=== PATIENT | female | born 1940 | race Caucasian/White ===

== ENCOUNTER 2016-10-28 14:17 | Inpatient (IN) | payer OTHER, BC ==
--- NOTE | 2016-10-28 16:02 | PDOC ---
History of Present Illness - General Chief Complaint: Rectal Bleed Stated Complaint: NAUSEA, CHILLS Time Seen by Provider: 10/28/16 15:52 - History of Present Illness Initial Comments: 76 year old female with PMH of diverticulitis presenting with left lower quadrant pain and bloody bowel movements since this morning. She states that this pain is reminiscent of her episode of diverticulitis that she had in 2016 although she had no bloody bowel movements then. She was constipated the night before presentation for which she took a laxative which helped her move her bowels but then became bloodier. She also admits to some chills and nausea. Denies chest pain, palpitations, cough, or other sick symptoms. 10/28/16 17:22 10/28/16 21:04 Past History - Past Medical History Allergies/Adverse Reactions: Allergies Allergy/AdvReac Type Severity Reaction Status Date / Time No Known Allergies Allergy Verified 10/28/16 14:29 Psychiatric Problems: Yes (DEPRESSION) - Psycho/Social/Smoking Cessation Hx Suicidal Ideation: No Smoking History: Never smoked Information on smoking cessation initiated: No Review of Systems - Review of Systems Constitutional: Yes: Chills, Fever HEENTM: No: Blurred Vision, Recent change in vision Respiratory: No: Cough, Orthopnea, Wheezing Cardiac (ROS): No: Chest Pain, Edema *Physical Exam - Vital Signs Last Vital Signs Temp Pulse Resp BP Pulse Ox 98.1 F 91 H 18 143/73 98 10/28/16 14:25 10/28/16 14:25 10/28/16 14:25 10/28/16 14:25 10/28/16 14:25 - Physical Exam General Appearance: Yes: Nourished, Appropriately Dressed. No: Apparent Distress HEENT: positive: EOMI, CLAUDIA, Normal ENT Inspection Neck: negative: Tender Respiratory/Chest: positive: Lungs Clear, Normal Breath Sounds. negative: Chest Tender, Respiratory Distress Cardiovascular: positive: Regular Rhythm, Regular Rate, S1, S2. negative: Edema , JVD, Murmur Gastrointestinal/Abdominal: positive: Normal Bowel Sounds, Tender (LLQ tenderness to deep palpation), Flat, Soft Rectal Exam: positive: other (external hemorrhoids at 6 oclock position of anus. Erythematous fissure on 12 oclock position of anus. No blood in rectal vault.) Extremity: positive: Normal Capillary Refill, Normal Inspection Integumentary: positive: Normal Color, Dry, Warm Neurologic: positive: Fully Oriented, Alert, Normal Mood/Affect ED Treatment Course - LABORATORY CBC & Chemistry Diagram: 10/28/16 16:20 10/28/16 16:20 Medical Decision Making - Medical Decision Making 76 year old with diarrhea, bloody stools, and LLQ pain concerning for diverticulitis. CBC significant for 14 WBC but HgB WNL. CMP WNL, UA normal, will get CT abdomen/ pelvis with IV and oral con for diverticulitis. Signed out to Dr. Villatoro and Dr. Munoz at 19:00. 10/28/16 21:06 10/28/16 21:08 *DC/Admit/Observation/Transfer Diagnosis at time of Disposition: Diverticulitis of intestine
[2016-10-28 16:57] LABS: BASOPHIL 1.1 % (0-2.0); MCH 31.6 pg (25.7-33.7); MCHC 33.6 g/dl (32.0-36.0); MEAN CELL VOLUME 94.1 fl (80-96); MEAN PLT VOLUME 7.5 fl (7.5-11.1); NEUTROPHILS 84.5 % (42.8-82.8); PLATELET COUNT 550 K/MM3 (134-434); RDW 13.3 % (11.6-15.6); WHITE BLOOD COUNT 14.7 K/mm3 (4.0-10.0)
[2016-10-28] MEDS ORDERED: SODIUM CHLORIDE 0.9% 1000 ML INFUS.BAG IV ONE (17:44)
[2016-10-28] MEDS ORDERED: ONDANSETRON 4 MG TABLET PO ONE (17:44)
--- NOTE | 2016-10-28 17:46 | PDOC ---
Attending Attestation - Physicial Exam PE: 10/28/16 17:46 GENERAL: Awake, alert, and fully oriented, in no acute distress HEAD: No signs of trauma EYES: PERRLA, EOMI, sclera anicteric, conjunctiva clear ENT: Auricles normal inspection, hearing grossly normal, nares patent, oropharynx clear without exudates. Moist mucosa NECK: Normal ROM, supple, no lymphadenopathy, JVD, or masses LUNGS: Breath sounds equal, clear to auscultation bilaterally. No wheezes, and no crackles HEART: Regular rate and rhythm, normal S1 and S2, no murmurs, rubs or gallops ABDOMEN: LLQ tenderness to palpation. Soft, normoactive bowel sounds. No guarding, no rebound. No masses RECTAL: Fissure at 12 oclock. External hemorrhoid. EXTREMITIES: Normal range of motion, no edema. No clubbing or cyanosis. No cords, erythema, or tenderness NEUROLOGICAL: Cranial nerves II through XII grossly intact. Normal speech, normal gait SKIN: Warm, Dry, normal turgor, no rashes or lesions noted. - Medical Decision Making 10/28/16 17:46 Documentation prepared by Leisa Alaniz, acting as medical information specialist for Erica Pulido DO. <Leisa Alaniz - Last Filed: 10/28/16 17:46> - Resident Resident Name: NnamdiLissett - ED Attending Attestation I have performed the following: I have examined & evaluated the patient, The case was reviewed & discussed with the resident, I agree w/resident's findings & plan, Exceptions are as noted - HPI HPI: 10/28/16 17:43 76yo female with LLQ pain, constipation, and rectal bleeding. States hx of diverticulitis. States constipation yesterday and she took laxatives. Today with rectal bleeding. Denies cp/sob. No f/c. No urinary complaints. States pain similar to diverticulitis. Denies all other complaints. C/o nausea. No vomiting. 10/28/16 20:25 - Medical Decision Making 10/28/16 17:43 I, Dr. Erica Pulido DO, attest that this document has been prepared under my direction and personally reviewed by me in its entirety. I further attest, that it accurately reflects all work, treatment, procedures and medical decision -making performed by me. 10/28/16 17:44 a/p: 76yo female with LLQ pain, diarrhea, rectal bleeding -fissure on rectal exam and small external hemorrhoid. -labs -ct abd/pelvis to re-eval LLQ pain and poss diverticulitis -nausea control 10/28/16 20:26 pt with elevated wbc, pending ct scan 10/28/16 20:26 pt with LLQ pain, constipation and rectal bleeding. pt signed out to the on coming ED physician pending CT imaging for poss diverticulitis. <Erica Pulido - Last Filed: 10/28/16 20:28>
[2016-10-28 18:20] LABS: ALBUMIN 3.5 g/dl (3.4-5.0); ALK PHOS 95 U/L (45-117); BILIRUBIN,TOTAL 0.5 mg/dL (0.2-1.0); CALCIUM 9.8 mg/dL (8.5-10.1); CREATININE 0.8 mg/dL (0.55-1.02); GLUCOSE,RANDOM 120 mg/dL (74-106); MAGNESIUM 2.4 mg/dL (1.8-2.4); SGOT/AST 14 U/L (15-37); SGPT/ALT 14 U/L (12-78); TOT PROT 8.1 g/dl (6.4-8.2)
[2016-10-28 18:56] LABS: PH,URINE 5.5 (5.0-8.0); URINE APPEARANCE CLEAR; URINE BILIRUBIN 1+ (NEGATIVE); URINE BLOOD 2+ (NEGATIVE); URINE COLOR LT. YELLOW; URINE GLUCOSE (UA) NEGATIVE (NEGATIVE); URINE KETONE TRACE (NEGATIVE); URINE NITRITE NEGATIVE (NEGATIVE); URINE PROTEIN TRACE (NEGATIVE); URINE UROBILINOGEN 0.2 mg/dL (0.2-1.0)
[2016-10-28] MEDS ORDERED: ONDANSETRON *ODT* 4 MG TABLET ONE (18:56)
[2016-10-28 19:12] LABS: GRANULAR CASTS 1 /lpf; URINE HYALINE CAST 1 /lpf; URINE MUCUS MODERATE; URINE RBC 7 /hpf (0-3); URINE WBC 2 /hpf (3-5)
--- NOTE | 2016-10-28 19:58 | PDOC ---
*Physical Exam - Vital Signs Last Vital Signs Temp Pulse Resp BP Pulse Ox 98.1 F 91 H 18 143/73 98 10/28/16 14:25 10/28/16 14:25 10/28/16 14:25 10/28/16 14:25 10/28/16 14:25 ED Treatment Course - LABORATORY CBC & Chemistry Diagram: 10/28/16 16:20 10/28/16 16:20 - ADDITIONAL ORDERS Additional order review: Laboratory Results 10/28/16 10/28/16 17:40 16:20 Sodium 136 Potassium 4.9 Chloride 100 BUN 18 Creatinine 0.8 Creat Clearance w eGFR > 60 Random Glucose 120 H Calcium 9.8 Magnesium 2.4 Total Bilirubin 0.5 AST 14 L ALT 14 Alkaline Phosphatase 95 Total Protein 8.1 Albumin 3.5 Urine Color Lt. yellow Urine Appearance Clear Urine pH 5.5 Urine Protein Trace H Urine Glucose (UA) Negative Urine Ketones Trace H Urine Blood 2+ H Urine Nitrite Negative Urine Bilirubin 1+ H Urine Urobilinogen 0.2 Urine RBC 7 Urine WBC 2 Ur Epithelial Cells Rare Hyaline Casts 1 Granular Casts 1 Urine Mucus Moderate 10/28/16 16:20 RBC 4.23 MCV 94.1 MCHC 33.6 RDW 13.3 MPV 7.5 Neutrophils % 84.5 H Lymphocytes % 9.9 Monocytes % 4.5 Eosinophils % 0.0 Basophils % 1.1 - Medications Given in the ED: ED Medications Discontinued Medications Generic Name Dose Route Start Last Admin Trade Name Freq PRN Reason Stop Dose Admin Ondansetron HCl 4 mg 10/28/16 17:44 10/28/16 18:51 Zofran - PO 10/28/16 17:45 4 mg ONCE ONE Administration Sodium Chloride 1,000 ml 10/28/16 17:44 10/28/16 18:51 Normal Saline - IV 10/28/16 17:45 1,000 ml ONCE ONE Administration Medical Decision Making - Medical Decision Making 10/28/16 19:57 Patient signed out to me by day team, Dr. Coto. Pending CT and reassess. 10/28/16 19:58 WBC count 14.7. UA negative. 10/29/16 00:17 CT is abnormal. I have spoken with Dr. Zuniga, surgeon contract assistant, who has discussed the patient's CT results with me and the severity of her disease. He wants an ICU bed, harmon catheter, hydration, and zosyn 3.375 q6. I have spoken to the hospitalists who accept admission. [facility] accepts ICU admission. *DC/Admit/Observation/Transfer Diagnosis at time of Disposition: Diverticulitis - Discharge Dispostion Condition at time of disposition: Guarded Admit: Yes - Referrals Referrals: Adelaide Barber [Primary Care Provider] -
[2016-10-28 21:05] LABS: INR 1.26 (0.82-1.09); PROTHROMBIN TIME (PATIENT) 13.9 SEC (9.98-11.88)
[2016-10-28] MEDS ORDERED: METRONIDAZOLE 500 MG PREMIXED 100 ML IVPB ONE ×2 (22:53→23:01)
[2016-10-28] MEDS ORDERED: LEVOFLOXACIN 750 MG IVPB 150 ML IVPB ONE ×2 (22:53→23:53)
[2016-10-28 23:23] LABS: ANION GAP 10 (8-16); CO2 26 mmol/L (21-32)
--- NOTE | 2016-10-29 00:03 | PN ---
Progress Note (short form) - Note Progress Note: surgery Case reviewed with ED physician. full evaluation to follow. 76f with history of diverticulitis in August presents with 1 day of constipation followed by a bloody bm after taking laxatives. Ct shows thickening of entire left colon, sigmoid, and rectum with enhancing collection posterior to the rectum and pneumatosis of upper decending colon with air in the retroperitoneum near the pneumatosis. No fever with unremarkable vitals and wbc 14. Plan- npo, zosyn, icu. IR eval for drainage of collection if remains stable overnight. Laparotomy with colostomy/colectomy if deteriorates. Ct findings most consistent with colitis with perforation. enhancing collection suggest this process has been going on much more than 1 day.
[2016-10-29] MEDS ORDERED: SODIUM CHLORIDE 0.9% 1000 ML INFUS.BAG IV ONE (00:07)
[2016-10-29] MEDS ORDERED: PIPERACILLIN/TAZOB 3.375 GM/50 ML PRE-DOCKED IV ONE (00:08)
[2016-10-29] MEDS ORDERED: PIPERACILLIN/TAZOB 3.375 GM 50 ML IVPB ONE (00:18)
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
[2016-10-29] MEDS ORDERED: PIPERACILLIN/TAZOB 3.375 GM 3.375 GM in DEXTROSE 5%-WATER - 50 ML IVPB SCH (02:00)
--- NOTE | 2016-10-29 02:42 | HP ---
CHIEF COMPLAINT: LLQ abdominal pain and bloody diarrhea PCP: Dr. Barber HISTORY OF PRESENT ILLNESS: 76 y.o. F with pmh of diverticulitis, nephrolithiasis, and depression presenting with LLQ abdominal pain and bloody diarrhea. Patient states she had been having constipation x 2 weeks. She took 3 laxatives prior to sleeping. In the middle of the night, patient woke up with sharp, cramping, 5-8/10, non radiating LLQ pain. Patient states she began having bloody diarrhea, which helped to relieve the pain. She had >15 episodes of bloody diarrhea. Patient endorses fever, chills, night sweats, and band like lower back pain. Patient denies any chest pain, SOB, urinary symptoms. ER course was notable for: (1) VS- HR-91, WBC- 14.7, Lactic acid- pending (2) UA- 2+ blood, (3) Ct shows thickening of entire left colon, sigmoid, and rectum with enhancing collection posterior to the rectum and pneumatosis of upper decending colon with air in the retroperitoneum near the pneumatosis. Recent Travel: denies PAST MEDICAL HISTORY: diverticulitis, nephrolithiasis, and depression PAST SURGICAL HISTORY: Splenic removal s/p splenic rupture Social History: Smoking: denies Alcohol: 1 beer/night Drugs: denies Family History: Father- diverticulitis Allergies No Known Allergies Allergy (Verified 10/28/16 14:29) HOME MEDICATIONS: Home Medications Medication Instructions Recorded Citalopram Hydrobromide [Celexa -] 20 mg PO DAILY 10/28/16 REVIEW OF SYSTEMS CONSTITUTIONAL: Absent: fever, chills, diaphoresis, generalized weakness, malaise, loss of appetite, weight change (jan 26- over last 2 months) HEENT: Absent: rhinorrhea, nasal congestion, throat pain, throat swelling, difficulty swallowing, mouth swelling, ear pain, eye pain, visual changes CARDIOVASCULAR: Absent: chest pain, syncope, palpitations, irregular heart rate, lightheadedness , peripheral edema RESPIRATORY: Absent: cough, shortness of breath, dyspnea with exertion, orthopnea, wheezing, stridor, hemoptysis GASTROINTESTINAL: Absent: abdominal pain, abdominal distension, nausea, vomiting, diarrhea, constipation, melena, hematochezia GENITOURINARY: Absent: dysuria, frequency, urgency, hesitancy, hematuria, flank pain, genital pain MUSCULOSKELETAL: Absent: myalgia (band like lower back pain), arthralgia, joint swelling, back pain, neck pain SKIN: Absent: rash, itching, pallor HEMATOLOGIC/IMMUNOLOGIC: Absent: easy bleeding, easy bruising, lymphadenopathy, frequent infections ENDOCRINE: Absent: unexplained weight gain, unexplained weight loss, heat intolerance, cold intolerance NEUROLOGIC: Absent: headache, focal weakness or paresthesias, dizziness, unsteady gait, seizure, mental status changes, bladder or bowel incontinence PSYCHIATRIC: Absent: anxiety, depression, suicidal or homicidal ideation, hallucinations. PHYSICAL EXAMINATION GENERAL: Awake, alert, and fully oriented, in no acute distress. HEAD: Normal with no signs of trauma. EYES: Extraocular movements intact, sclera anicteric, conjunctiva clear. No lid lag. EARS, NOSE, THROAT: Oropharynx clear without exudates. Dry mucous membranes. NECK: Normal range of motion, supple without lymphadenopathy, JVD, or masses. LUNGS: Breath sounds equal, clear to auscultation bilaterally. No wheezes, and no crackles. No accessory muscle use. HEART: Regular rate and rhythm, normal S1 and S2 without murmur, rub or gallop. ABDOMEN: Soft, nontender, not distended, + bowel sounds, no guarding, no rebound , no masses. No hepatomegaly or splenomegaly. MUSCULOSKELETAL: Normal range of motion at all joints. No bony deformities or tenderness. UPPER EXTREMITIES: 2+ pulses, warm, well-perfused. No cyanosis. No clubbing. No peripheral edema. LOWER EXTREMITIES: 2+ pulses, warm, well-perfused. No calf tenderness. No peripheral edema. NEUROLOGICAL: Cranial nerves II-XII intact. Normal speech. Normal gait. PSYCHIATRIC: Cooperative. Good eye contact. Appropriate mood and affect. SKIN: Warm, dry, normal turgor, no rashes or lesions noted, normal capillary refill. ASSESSMENT/PLAN: 76 y.o. F with pmh of diverticulitis presenting with LLQ abdominal pain and bloody diarrhea admitted for colitis with bowel abscess and perforation #Bowel abscess with perforation and colitis -Keep patient NPO -Zosyn 3.375 g q6h -PT/INR -Type and Screen -IV protonix 40 mg IV daily -IVF NS @ 100 cc/hr -F/U lactic acid, BCX, UCX -Monitor abdominal exam, if patient worsens, pt may need to go for urgent surgery -Id consulted, Dr. Dent -Surgery Consulted, Dr. Zuniga -IR consulted, Dr. Felix-- Possible IR guided abscess drainage -ICU consulted #Bright red blood diarrhea -H/H wnl -Continue to monitor H/H -Will get morning CBC #Depression -Hold celexa 20 mg po daily as pt is NPO #FEN/GI -IVF NS @ 100 cc/hr -WNL -NPO #PPx -DVT- SCDs -GI- Protonix 40 mg IV daily #Dispo -Admit to ICU -Monitor abdominal exam, if patient worsens, pt may need to go for urgent surgery -IR consulted for possible IR guided abscess drainage Visit type - Emergency Visit Emergency Visit: Yes ED Registration Date: 10/29/16 Care time: The patient presented to the Emergency Department on the above date and was hospitalized for further evaluation of their emergent condition. - New Patient This patient is new to me today: Yes Date on this admission: 10/29/16 - Critical Care Critical Care patient: No
--- NOTE | 2016-10-29 03:13 | MSN ---
Admitting History and Physical - Admission Chief Complaint: LLQ pain with bloody diarrhea History of Present Illness: Patient is a 76 year old female with significant past medical history of diverticulitis (most recent flare up in 08/2016), nephrolithiasis who presented to the ED with LLQ pain and bloody diarrhea. Patient stated that she took 3 OTC laxitive pills last night to relieve constipation of 2 weeks duration. Patient woke up during the middle of the night with non-bloody, nonbillious vomiting, sharp, crampy, continuous 5-8/10 LLQ pain and copious bloody diarrhea. Patient also stated that she has been experiencing dull, band-like lower back pressure for the past few weeks. Patient has had at least 15 episodes of bloody diarrhea today, which has decreased the pain. She has been experiencing chills, night sweats, weight loss of about 10-12 lbs in 2 months (after diet change), and feeling feverish. Denies headache, lightheadedness, dizziness, chest pain, shortness of breath, and urinary symptoms. History Source: Patient Limitations to Obtaining History: No Limitations - Past Medical History Gastrointestinal: Yes: Diverticulitis (flare up in August 2016) Renal/: Yes: Other (nephrolithiasis (15 years ago)) Psych: Yes: Depression - Past Surgical History Past Surgical History: Yes: Joint Replacement (right hip replacement 2008), Splenectomy (1961) - Smoking History Smoking history: Never smoked - Alcohol/Substance Use Hx Alcohol Use: Yes Number of Drinks Daily: 1 (drinks one beer a night) History of Substance Use: reports: None Home Medications - Allergies Allergies/Adverse Reactions: Allergies Allergy/AdvReac Type Severity Reaction Status Date / Time No Known Allergies Allergy Verified 10/28/16 14:29 - Home Medications Home Medications: Ambulatory Orders Citalopram Hydrobromide [Celexa -] 20 mg PO DAILY 10/28/16 Family Disease History - Family Disease History Family Disease History: Diabetes: Father (diverticulitis), Other: Father Review of Systems - Review of Systems Constitutional: reports: Chills, Night Sweats HENT: reports: Other (dry mouth) Cardiovascular: reports: No Symptoms Respiratory: reports: No Symptoms Gastrointestinal: reports: Abdominal Pain, Diarrhea, Vomiting Genitourinary: reports: No Symptoms Musculoskeletal: reports: Back Pain (pressure in the lower back in a band-like fashion) Physical Examination Vital Signs: Vital Signs Temperature 98.4 F 10/28/16 23:20 Pulse Rate 71 10/28/16 23:20 Respiratory Rate 18 10/28/16 23:20 Blood Pressure 132/68 10/28/16 23:20 O2 Sat by Pulse Oximetry (%) 97 10/28/16 23:20 Constitutional: Yes: Well Nourished, No Distress, Calm HENT: Yes: Other (dry mucous membranes) Cardiovascular: Yes: WNL, Regular Rate and Rhythm, S1, S2 Respiratory: Yes: WNL, Regular, CTA Bilaterally Gastrointestinal: Yes: Soft, Hypoactive Bowel Sounds Edema: No Peripheral Pulses WNL: Yes Neurological: Yes: WNL, Alert, Oriented Imaging - Results Cat Scan: Report Reviewed (thickening of the left colon, sigmoid and rectum with enhancing collection posterior to the rectum and pneumatosis of upper decending colon, with air in the retroperitoneum. 6x4x2 cm abscess) Assessment/Plan Patient is a 76 year old female with past medical history of diverticultis ( last flare up 08/2016), depression and nephrolithiasis who presented to the ED with LLQ pain and bloody diarrhea. #Abscess with bowel perforation -CT abdomen showed 6x4x2 cm abscess, air in retroperitoneum and thickening left colon, sigmoid and rectum -NPO -IVF NS at 100cc/hr -zosyn 3.375g Q8H -ID consulted (Dr. Dent) -surgery consulted (Dr. Zuniga) -IR consulted to have abscess drained -f/u blood cultures, urine cultures -f/u lactic acid -protonix given (40mg IV daily) for GI prophylaxis -continue to check abdominal exam for sudden changes #GI bleeding -less amount of blood each time she goes to the bathroom -H and H WNL -continue to monitor H and H -blood type and screen -coagulation studies (PT/INR) #Depression -continue celexa #FEN -fluids: 100cc/hr NS -electrolytes: WNL -nutrition: NPO #Prophylaxis -DVT: SCDs -GI: protonix given (40mg IV daily) -deconditioning: patient able to walk on her own #Dispo -admit to ICU
--- NOTE | 2016-10-29 03:45 | CONSULT ---
Consult - History of Present Illness History of Present Illness: 76 year old female with PMHx of diverticulitis (most recent flare up in 08/2016) , nephrolithiasis who presented to the ED with fevr chills, LLQ pain and bloody diarrhea. CT A/P s/f colitis and a retroperitoneal abscess. Transferred to ICU for monitoring pending IR drainage of abscess. Briefly as per previous notes patient stated that she took 3 OTC laxitive pills last night to relieve constipation of 2 weeks duration. She had non-bloody, nonbillious vomiting, sharp, crampy, continuous 5-8/10 LLQ pain and copious bloody diarrhea. Patient also c/o dull, band-like lower back pressure for the past few weeks as well as chills, night sweats, weight loss of about 10-12 lbs in 2 months after loss of appetite and diet change. Denies headache, lightheadedness, dizziness, chest pain, shortness of breath, and urinary symptoms. In Ed VS 132/68, HR 71, O2sat 97% on RA, afebrile. Labs notable for WBC 14.1., lactate 0.8. CT scan s/f colitis intramural air possible bowel perforation and 6x4x2 cm fluid/abscess collection. Surgery and IR consulted for possible abscess drainage in am. In ICUpt rec'd A+O x3 in NAD VSS. No c/o abd pain. Abd soft and non-tender. Walked from stretcher to bed. Last colonosocpy ~5yrs ago with 1 polyp and hemorrhoids. Scheduled for repeat in november. - Past Medical History Gastrointestinal: Yes: Diverticulitis (flare up in August 2016) Renal/: Yes: Other (nephrolithiasis (15 years ago)) Psych: Yes: Depression - Past Surgical History Past Surgical History: Yes: Joint Replacement (right hip replacement 2008), Splenectomy (1961) - Alcohol/Substance Use Hx Alcohol Use: Yes Number of Drinks Daily: 1 (drinks one beer a night) History of Substance Use: reports: None - Smoking History Smoking history: Never smoked Home Medications - Allergies Allergies/Adverse Reactions: Allergies Allergy/AdvReac Type Severity Reaction Status Date / Time No Known Allergies Allergy Verified 10/28/16 14:29 - Home Medications Home Medications: Ambulatory Orders Citalopram Hydrobromide [Celexa -] 20 mg PO DAILY 10/28/16 Family Disease History - Family Disease History Family Disease History: Diabetes: Father (diverticulitis), Other: Father Review of Systems - Review of Systems Constitutional: reports: Fever, Night Sweats Eyes: reports: No Symptoms Physical Exam Vital Signs: Vital Signs Temperature 98.4 F 10/28/16 23:20 Pulse Rate 83 10/29/16 03:19 Respiratory Rate 20 10/29/16 03:19 Blood Pressure 139/71 10/29/16 03:19 O2 Sat by Pulse Oximetry (%) 98 10/29/16 03:19 Constitutional: Yes: Well Nourished, No Distress, Calm Eyes: Yes: Conjunctiva Clear, PERRL HENT: Yes: Normocephalic Neck: Yes: Supple, Trachea Midline Cardiovascular: Yes: Regular Rate and Rhythm, S1, S2 Respiratory: Yes: CTA Bilaterally Gastrointestinal: Yes: Soft, Other (+BS; soft, NT, ND, no rebound tenderness) Renal/: Yes: WNL Musculoskeletal: Yes: WNL Extremities: Yes: WNL Edema: No Peripheral Pulses WNL: Yes Integumentary: Yes: WNL Neurological: Yes: Alert, Oriented ...Motor Strength: WNL Psychiatric: Yes: Alert, Oriented Labs: CBC,CMP WBC 14.7 K/mm3 (4.0-10.0) H 10/28/16 16:20 RBC 4.23 M/mm3 (3.60-5.2) 10/28/16 16:20 Hgb 13.4 GM/dL (10.7-15.3) 10/28/16 16:20 Hct 39.8 % (32.4-45.2) 10/28/16 16:20 MCV 94.1 fl (80-96) 10/28/16 16:20 MCH 31.6 pg (25.7-33.7) 10/28/16 16:20 MCHC 33.6 g/dl (32.0-36.0) 10/28/16 16:20 RDW 13.3 % (11.6-15.6) 10/28/16 16:20 Plt Count 550 K/MM3 (134-434) H 10/28/16 16:20 MPV 7.5 fl (7.5-11.1) 10/28/16 16:20 Neutrophils % 84.5 % (42.8-82.8) H 10/28/16 16:20 Lymphocytes % 9.9 % (8-40) 10/28/16 16:20 Monocytes % 4.5 % (3.8-10.2) 10/28/16 16:20 Eosinophils % 0.0 % (0-4.5) 10/28/16 16:20 Basophils % 1.1 % (0-2.0) 10/28/16 16:20 Sodium 136 mmol/L (136-145) 10/28/16 16:20 Potassium 4.9 mmol/L (3.5-5.1) 10/28/16 16:20 Chloride 100 mmol/L (98-107) 10/28/16 16:20 Carbon Dioxide 26 mmol/L (21-32) 10/28/16 16:20 Anion Gap 10 (8-16) 10/28/16 16:20 BUN 18 mg/dL (7-18) 10/28/16 16:20 Creatinine 0.8 mg/dL (0.55-1.02) 10/28/16 16:20 Creat Clearance w eGFR > 60 (>60) 10/28/16 16:20 Random Glucose 120 mg/dL (74-106) H 10/28/16 16:20 Lactic Acid 0.8 mmol/L (0.4-2.0) 10/29/16 01:50 Calcium 9.8 mg/dL (8.5-10.1) 10/28/16 16:20 Magnesium 2.4 mg/dL (1.8-2.4) 10/28/16 16:20 Total Bilirubin 0.5 mg/dL (0.2-1.0) 10/28/16 16:20 AST 14 U/L (15-37) L 10/28/16 16:20 ALT 14 U/L (12-78) 10/28/16 16:20 Alkaline Phosphatase 95 U/L (45-117) 10/28/16 16:20 Total Protein 8.1 g/dl (6.4-8.2) 10/28/16 16:20 Albumin 3.5 g/dl (3.4-5.0) 10/28/16 16:20 Current Medications Chlorhexidine Gluconate (Hibiclens For Decolonization -) 1 applic TP HS SOM Citalopram Hydrobromide (Celexa -) 20 mg PO DAILY SOM Sodium Chloride (Normal Saline -) 1,000 mls @ 100 mls/hr IV ASDIR SOM Piperacillin Sod/Tazobactam (Sod 3.375 gm/ Dextrose) 50 mls @ 100 mls/hr IVPB Q8H-IV SOM PRN Reason: Protocol Last Admin: 10/29/16 02:00 Dose: Not Given Pantoprazole Sodium (Protonix 40mg Ivpb (Pre-Docked)) 100 mls @ 200 mls/hr IVPB DAILY SOM Mupirocin (Bactroban Ointment (For Decolonization) -) 1 applic NS BID SOM Stop: 11/03/16 09:59 Assessment/Plan 76 year old female with PMHx of diverticulitis (most recent flare up in 08/2016) , nephrolithiasis who presented to the ED with fever chills, LLQ pain and bloody diarrhea. CT A/P s/f colitis and a retroperitoneal abscess. Transferred to ICU for monitoring pending IR drainage of abscess. Plan: -IR consult -NPO -IV NS @100cc/h -f/u cultures -Cont Zosyn for empiric coverage -Monitor Hgb -Cont protonix -Maintain large bore IV -trend lactate -Monitor I+Os -DVT proph with SCDs Dinorah Muir, EVELYNP
[2016-10-29 04:17] VITALS: BMI 26.2
[2016-10-29 07:56] LABS: BASOPHIL 0.5 % (0-2.0); EOSINOPHIL 0.1 % (0-4.5); MCH 31.3 pg (25.7-33.7); MCHC 33.3 g/dl (32.0-36.0); MEAN PLT VOLUME 6.8 fl (7.5-11.1); NEUTROPHILS 79.3 % (42.8-82.8); PLATELET COUNT 485 K/MM3 (134-434); RDW 12.8 % (11.6-15.6); WHITE BLOOD COUNT 13.4 K/mm3 (4.0-10.0)
[2016-10-29] MEDS ORDERED: PROMETHAZINE HCL 25 MG/1 ML VIAL IVPB PRN ×2 (08:03→15:48)
[2016-10-29 08:22] LABS: ALBUMIN 2.5 g/dl (3.4-5.0); ALK PHOS 65 U/L (45-117); ANION GAP 5 (8-16); BILIRUBIN,TOTAL 0.6 mg/dL (0.2-1.0); CALCIUM 8.6 mg/dL (8.5-10.1); CO2 27 mmol/L (21-32); CREATININE 0.7 mg/dL (0.55-1.02); GLUCOSE,RANDOM 119 mg/dL (74-106); SGOT/AST 12 U/L (15-37); SGPT/ALT 12 U/L (12-78)
--- NOTE | 2016-10-29 08:33 | PN ---
Physical Exam: SUBJECTIVE: Patient seen and examined by me this AM - Complaining of Mild LLQ pain. Endorses occasional chills, intermittent nausea. Denies any fever, HINDS, SOB, cough, LE edema, back pain. - Endorses BM overnight. Trace melena in stool. Resolving progressively. - WBC downtrending 14.7 -> 13.4. Normal lactate. Normotensive. H/H 11.3. - No major overnight events. Stable, afebrile PM: - Pending transfer to [place] for further management. Dr. Jodi Cardenas general surgeon agrees to accept pt. OBJECTIVE: Vital Signs Intake & Output 10/26/16 10/27/16 10/28/16 10/29/16 23:59 23:59 23:59 23:59 Intake Total 1000 200 Balance 1000 200 Weight 74.843 kg 78.834 kg Period Temp Pulse Resp BP Sys/Saenz Pulse Ox Last 24 Hr 98.3 F-98.4 F 65-83 16-20 120-139/54-93 98-99 GENERAL: The patient is awake, alert, and fully oriented. HEAD: Normal with no signs of trauma. EYES: PERRL, extraocular movements intact, sclera anicteric, conjunctiva clear. No ptosis. ENT: Ears normal, nares patent, oropharynx clear without exudates, moist mucous membranes. NECK: Trachea midline, full range of motion LUNGS: Breath sounds equal, clear to auscultation bilaterally, no wheezes, no crackles, no accessory muscle use. HEART: Regular rate and rhythm, S1, S2 without murmur, rub or gallop. ABDOMEN: Soft, nondistended. Tender to palpation in LLQ. Normoactive bowel sounds, no guarding, no rebound, no hepatosplenomegaly, no masses. EXTREMITIES: 2+ pulses, warm, well-perfused, no edema. SCDs. NEUROLOGICAL: Cranial nerves II through XII grossly intact. Normal speech, gait not observed. PSYCH: Normal mood, normal affect. In good spirits Laboratory Results - last 24 hr CBC, BMP 10/29/16 07:30 10/29/16 10/29/16 01:50 07:30 WBC 13.4 H RBC 3.61 Hgb 11.3 D Hct 33.9 MCV 94.0 MCH 31.3 MCHC 33.3 RDW 12.8 Plt Count 485 H MPV 6.8 L Neutrophils % 79.3 Lymphocytes % 12.7 D Monocytes % 7.4 Eosinophils % 0.1 D Basophils % 0.5 Lactic Acid 0.8 Active Medications Generic Name Dose Route Start Last Admin Trade Name Freq PRN Reason Stop Dose Admin Chlorhexidine Gluconate 1 applic 10/29/16 22:00 Hibiclens For Decolonization - TP HS SOM Sodium Chloride 1,000 mls @ 100 mls/hr 10/29/16 01:00 Normal Saline - IV ASDIR SOM Pantoprazole Sodium 100 mls @ 200 mls/hr 10/29/16 10:00 Protonix 40mg Ivpb (Pre-Docked) IVPB DAILY SOM Piperacillin Sod/Tazobactam 50 mls @ 100 mls/hr 10/29/16 09:00 Sod 3.375 gm/ Dextrose IVPB Q6H-IV SOM Protocol Metronidazole 100 mls @ 100 mls/hr 10/29/16 08:30 Flagyl 500mg Premixed Ivpb - IVPB Q8H-IV SOM Mupirocin 1 applic 10/29/16 10:00 Bactroban Ointment (For Decolonization) - NS 11/03/16 09:59 BID SOM Promethazine HCl 12.5 mg 10/29/16 08:03 Phenergan Injection - IVPUSH Q4H PRN NAUSEA AND/OR VOMITING Blood, urine cx's pending Abdominal CT scan (10/28) - Thickening of left descending colon, sigmoid and rectum with accompanying pneumatosis, w/ 6x4x2 pre-sacral abscess. ASSESSMENT/PLAN: 81 yo woman w/ pmh of diverticulitis, nephrolithiasis, and hemorrhoids who presented to ED w/ fever, LLQ pain, and multiple bouts of bloody/melenic diarrhea. Pt currently stable, afebrile w/ downtrending WBC count, complaining of mild LLQ pain. Abdominal CT scan notable for diffuse bowel thickening of descending, sigmoid colon and rectum, pneumatosis and 6x4x2 cm presacral abscess. Pt now s/p IR-guided abscess drain placement, pending transfer to [facility] for further management and possible resection w/ colostomy. #Neuro - Monitor pain - Hold celexa #Cardiac -Daily weights #Pulm -O2 2L NC. Titrate to >94% #ID - Per ID, Zosyn/flagyl for peritonitis ppx - Trend fever, WBC - f/u blood, urine cultures - Lactate 0.8 #Renal - IVF NS 100cc/hr - Strict Is&Os - Daily BMPs - Monitor lytes #Heme - Monitor H/H #GI - Serial abdominal exams. If significant worsening, consider urgent surgery - Transfer to [facility] for possible resection/colostomy - NPO - Phenergan for nausea #FEN -Fluids: NS 100cc/hr -Electrolytes: Daily BMPs, monitor lytes -Nutrition: NPO #PPX -SubQ Heparin for DVT ppx -PPI for GI ppx #Dispo - Transfer to [facility] for possible resection/colostomy. Dispo to ICU for further monitoring/management. Leobardo Barron, PGY1 Plan discussed with attending, Dr. Pollack Visit type - Emergency Visit Emergency Visit: No - New Patient This patient is new to me today: Yes Date on this admission: 10/29/16 - Critical Care Critical Care patient: Yes Total Critical Care Time (in minutes): 35 Critical Care Statement: The care of this patient involved high complexity decision making to prevent further life threatening deterioration of the patient 's condition and/or to evaluate & treat vital organ system(s) failure or risk of failure.
[2016-10-29] MEDS ORDERED: PIPERACILLIN/TAZOB 3.375 GM 3.375 GM in DEXTROSE 5%-WATER - 50 ML IVPB ONE (09:00)
[2016-10-29] MEDS ORDERED: METRONIDAZOLE 500 MG PREMIXED 100 ML IVPB SCH (09:00)
[2016-10-29] MEDS ORDERED: PIPERACILLIN/TAZOB 3.375 GM/50 ML PRE-DOCKED IVPB ONE (09:00)
[2016-10-29] MEDS: SODIUM CHLORIDE 1,000 ML IV SCH ×2 (09:11→17:35)
--- NOTE | 2016-10-29 09:12 | PN ---
Progress Note (short form) - Note Progress Note: surgery 10/29 Pt seen and examined. full consult to be dictated. 76f as below. States she has lost 15 lbs this year and has lost the desire to eat since being hospitalized. Ct reviewed with radiology and as described below. abd is soft, minimal left sided tenderness without rebound. no fevers overnight and wbc now 13. Lactic acid is normal. plan- pneumatosis of proximal decending colon with retroperitoneal perforation with separate abscess behind the rectum and thickining of entire left colon and distal transverse colon. Differential includes inflammatory bowel disease, vs ischemic colitis on top of previous diverticulitis, vs c-diff colitis on top of previous diverticulitis. I am concerned that surgery may involve removal of a large portion of her colon and even the rectum. This may result in a permanent colostomy. Pt would best be managed at a tertiary care center with a colorectal surgeon. Pt is currently non toxic and wishes to avoid surgery if possible. Cont npo. Cont iv zosyn. check c-diff. IR to eval for drainage of pelvic collection. I have left a message for Dr. Neda Clemens at [facility] [phone]. Will follow. Pt does not want a colostomy and would want surgery done by a colorectal specialist if needed. 10/28 Case reviewed with ED physician. full evaluation to follow. 76f with history of diverticulitis in August presents with 1 day of constipation followed by a bloody bm after taking laxatives. Ct shows thickening of entire left colon, sigmoid, and rectum with enhancing collection posterior to the rectum and pneumatosis of upper decending colon with air in the retroperitoneum near the pneumatosis. No fever with unremarkable vitals and wbc 14. Plan- npo, zosyn, icu. IR eval for drainage of collection if remains stable overnight. Laparotomy with colostomy/colectomy if deteriorates. Ct findings most consistent with colitis with perforation. enhancing collection suggest this process has been going on much more than 1 day.
[2016-10-29] MEDS ORDERED: PANTOPRAZOLE SODIUM 100 ML IVPB SCH (10:00)
[2016-10-29] MEDS ORDERED: MUPIROCIN 2% TOPICAL OINTMENT FOR DECOLONIZATION NS SCH ×2 (10:00→22:00)
[2016-10-29] MEDS ORDERED: CITALOPRAM HYDROBROMIDE 20 MG TABLET (FP) PO SCH (10:00)
[2016-10-29 10:17] LABS: INR 1.37 (0.82-1.09); PROTHROMBIN TIME (PATIENT) 15.2 SEC (9.98-11.88)
--- NOTE | 2016-10-29 10:42 | EKG ---
Test Reason : Blood Pressure : / mmHG Vent. Rate : 071 BPM Atrial Rate : 071 BPM P-R Int : 170 ms QRS Dur : 086 ms QT Int : 418 ms P-R-T Axes : 076 066 061 degrees QTc Int : 454 ms NORMAL SINUS RHYTHM NOBSPECIFIC T WAVE ABNORMALITIES NO PREVIOUS ECGS AVAILABLE REPEAT EKG IF CLINICALLY INDICATED Confirmed by ROSALIND DEL CASTILLO MD ([id number]) on 10/29/2016 10:41:45 AM Referred By: Confirmed By:ROSALIND DEL CASTILLO MD
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
--- NOTE | 2016-10-29 14:53 | PN ---
Teaching Attending Note Name of Resident: Rashel Raymundo ATTENDING PHYSICIAN STATEMENT I saw and evaluated the patient. I reviewed the resident's note and discussed the case with the resident. I agree with the resident's findings and plan as documented. SUBJECTIVE: no fever or chills , abd pain is very mild . no diarrhea or hematochizia here OBJECTIVE: NA D, AAOx3 MMM, no facial droop CV: RRR, no MRG Lungs: CTAB ext: no edema ABD: soft , ND , minimal tenderness in LUQ and LLQ with no rebound tenderness or guarding. ASSESSMENT AND PLAN: 76 y/o lady withh/o diverticulitis who presented with abd pain , she was found tohave colon perforation and pelvic abscess 1- Rectal abscess and perforated bowel. stable . Nl lactic acid and no peritoneal signs on exam. etiology not fully understood. ? colitis with diverticulitis and perforation , ? ischemia, ...etc - cont zosyn, add flagy; - IR drainage of abscess. - D/W Dr Jessenia Zuniga, for Tx to tertiary center tomorrow . appreciate help with arrangements - cont IVF - pain control if needed - NPO for now . - check for c diff 2 - depression : give celexa with sips of water to avoid withdrawal sx 3- hematoschezia : possible ishemia or infection - follow H&H - cont Abx and above management HLOC plan for Tx to tertiary center. accepted
--- NOTE | 2016-10-29 15:01 | CON.ID ---
Consult Consult Specialty:: infectious diseases Reason for Consultation:: abdominal abscess - History of Present Illness Chief Complaint: abd pain History of Present Illness: 76 year old female with PMHx of diverticulitis nephrolithiasis who was admitted with fevr chills, LLQ pain and bloody diarrhea. CT A/P s/f colitis and a retroperitoneal abscess. p patient mentions that she has been constipated for quite some time and took laxative pills and without much help patient was taken to the IR today and a drainage tube was placed which drained kelsi pus patient currently feels much better pain still there - History Source History Provided By: Patient Limitations to Obtaining History: No Limitations - Past Medical History Gastrointestinal: Yes: Diverticulitis (flare up in August 2016) Renal/: Yes: Other (nephrolithiasis (15 years ago)) Psych: Yes: Depression - Past Surgical History Past Surgical History: Yes: Joint Replacement (right hip replacement 2008), Splenectomy (1961) - Alcohol/Substance Use Hx Alcohol Use: Yes Number of Drinks Daily: 1 (drinks one beer a night) History of Substance Use: reports: None - Smoking History Smoking history: Never smoked Home Medications - Allergies Allergies/Adverse Reactions: Allergies Allergy/AdvReac Type Severity Reaction Status Date / Time No Known Allergies Allergy Verified 10/28/16 14:29 - Home Medications Home Medications: Ambulatory Orders Citalopram Hydrobromide [Celexa -] 20 mg PO DAILY 10/28/16 Family Disease History - Family Disease History Family Disease History: Diabetes: Father (diverticulitis), Other: Father Review of Systems - Review of Systems Constitutional: reports: Fever Eyes: reports: No Symptoms HENT: reports: No Symptoms Neck: reports: No Symptoms Cardiovascular: reports: No Symptoms Respiratory: reports: No Symptoms Gastrointestinal: reports: Abdominal Pain, Other Genitourinary: reports: No Symptoms Musculoskeletal: reports: No Symptoms Integumentary: reports: No Symptoms Neurological: reports: No Symptoms Endocrine: reports: No Symptoms Hematology/Lymphatic: reports: No Symptoms Psychiatric: reports: No Symptoms Physical Exam Vital Signs: Vital Signs Temperature 98.4 F 10/29/16 10:00 Pulse Rate 66 10/29/16 14:25 Respiratory Rate 11 L 10/29/16 14:25 Blood Pressure 115/95 10/29/16 14:25 O2 Sat by Pulse Oximetry (%) 100 10/29/16 11:15 Constitutional: Yes: Well Nourished, Calm, Mild Distress Cardiovascular: Yes: Regular Rate and Rhythm Respiratory: Yes: Regular, CTA Bilaterally Gastrointestinal: Yes: Soft, Hypoactive Bowel Sounds, Other (draiange tube wiht kelsi pus in the bulb present) Musculoskeletal: Yes: WNL Extremities: Yes: WNL Neurological: Yes: Alert, Oriented Psychiatric: Yes: Alert, Oriented Labs: CBC, BMP 10/29/16 07:30 10/29/16 07:30 Imaging - Results Cat Scan: Report Reviewed, Image Reviewed Assessment/Plan 81 yo woman w/ pmh of diverticulitis, nephrolithiasis, and hemorrhoids who presented to ED w/ fever, LLQ pain, and multiple bouts of bloody/melenic diarrhea. Abdominal CT scan notable for diffuse bowel thickening of descending , sigmoid colon and rectum, pneumatosis and 6x4x2 cm presacral abscess. patient post ir drainage retroperitoneal abscess abd pain plan continue as per icu care await for c and sensitivities hydration abx started close watch cc time 40 min
--- NOTE | 2016-10-29 15:19 | DS ---
Physical Exam: SUBJECTIVE: Patient seen and examined. Pt complaining of nausea. She reports that her last BM was not bloody. She denies lightheadedness, chest pain, SOB, and dysuria. OBJECTIVE: Vital Signs Period Temp Pulse Resp BP Sys/Saenz Pulse Ox Last 24 Hr 98.3 F-98.4 F 65-83 11-20 111-147/54-95 98-100 PHYSICAL EXAM GENERAL: The patient is awake, alert, and fully oriented, in no acute distress. HEAD: Normal with no signs of trauma. EYES: PERRL, extraocular movements intact, sclera anicteric, conjunctiva clear. ENT: Ears normal, nares patent, oropharynx clear without exudates, moist mucous membranes. NECK: Trachea midline, full range of motion, supple. LUNGS: Breath sounds equal, clear to auscultation bilaterally, no wheezes, no crackles, no accessory muscle use. HEART: Regular rate and rhythm, S1, S2 without murmur, rub or gallop. ABDOMEN: Soft, minimally tender in LLQ, nondistended, hyperactive bowel sounds, no guarding, no rebound, no hepatosplenomegaly, no masses. EXTREMITIES: 2+ pulses, warm, well-perfused, no edema. NEUROLOGICAL: Cranial nerves II through XII grossly intact. Normal speech, gait not observed. PSYCH: Normal mood, normal affect. SKIN: Warm, dry, normal turgor, no rashes or lesions noted. LABS Laboratory Results - last 24 hr 10/29/16 10/29/16 10/29/16 01:50 07:30 07:30 WBC 13.4 H RBC 3.61 Hgb 11.3 D Hct 33.9 MCV 94.0 MCH 31.3 MCHC 33.3 RDW 12.8 Plt Count 485 H MPV 6.8 L Neutrophils % 79.3 Lymphocytes % 12.7 D Monocytes % 7.4 Eosinophils % 0.1 D Basophils % 0.5 INR 1.37 H Sodium Potassium Chloride Carbon Dioxide Anion Gap BUN Creatinine Creat Clearance w eGFR Random Glucose Lactic Acid 0.8 Calcium Total Bilirubin AST ALT Alkaline Phosphatase Total Protein Albumin 10/29/16 10/29/16 07:30 08:30 WBC RBC Hgb Hct MCV MCH MCHC RDW Plt Count MPV Neutrophils % Lymphocytes % Monocytes % Eosinophils % Basophils % INR Sodium 140 Potassium 4.1 Chloride 108 H Carbon Dioxide 27 Anion Gap 5 L BUN 11 D Creatinine 0.7 Creat Clearance w eGFR > 60 Random Glucose 119 H Lactic Acid 0.7 Calcium 8.6 Total Bilirubin 0.6 AST 12 L ALT 12 Alkaline Phosphatase 65 D Total Protein 6.0 L D Albumin 2.5 L D HOSPITAL COURSE: 76F w/ hx of diverticulitis (08/2016), nephrolithiasis, depression, and arthritis who presented with LLQ abdominal pain, hematochezia, and NBNB emesis, found to have a leukocytosis, retroperitoneal abscess, thickened and perforated distal colon with pneumatosis and free air. Pt was made NPO, given NS, a dose of levaquin and flagyl in the ED, and then zosyn and flagyl in the ICU. Her physical exam was not impressive for an acute abdomen, so surgery was not performed emergently. On 10/29, she underwent an abscess drainage by IR. Currently, pt has normal vital signs and is stable for discharge to [facility] for colorectal surgery. Date of Admission:10/29/16 Date of Discharge: 10/29/16 <Rashel Raymundo - Last Filed: 10/29/16 15:08> Physical Exam: SUBJECTIVE: Patient seen and examined Correction: Patient was not transferred to [facility] due to no bed availability. Once bed is available will be transferred then. Minutes to complete discharge: 35 <French Phipps - Last Filed: 11/01/16 16:49> Discharge Summary Reason For Visit: DIVERTICULITIS Current Active Problems Diverticulitis (Acute) Emesis (Acute) Hematochezia (Acute) Perforated bowel (Acute) Retroperitoneal abscess (Acute) Depression (Chronic) - Home Medications Comprehensive Discharge Medication List: Ambulatory Orders Citalopram Hydrobromide [Celexa -] 20 mg PO DAILY 10/28/16 Aspirin [Aspirin EC] 81 mg PO DAILY #30 tablet. 10/29/16 <Rashel Raymundo - Last Filed: 10/29/16 15:08> Current Active Problems Diverticulitis (Acute) Emesis (Acute) Hematochezia (Acute) Perforated bowel (Acute) Retroperitoneal abscess (Acute) Depression (Chronic) - Home Medications Comprehensive Discharge Medication List: Ambulatory Orders Citalopram Hydrobromide [Celexa -] 20 mg PO DAILY 10/28/16 Aspirin [Aspirin EC] 81 mg PO DAILY #30 tablet. 10/29/16 <French Phipps - Last Filed: 11/01/16 16:49> Condition: Stable - Instructions Diet, Activity, Other Instructions: You were found to have a retroperitoneal abscess and perforated colon. In the hospital, you were given antibiotics, and your abscess was drained by interventional radiology. Your perforated colon will be surgically treated by a colorectal surgeon at [facility]. Referrals: Adelaide Barber [Primary Care Provider] - Disposition: TRANSFER ACUTE CARE/OTHER HOSP This patient is new to me today: Yes Date on this admission: 10/29/16 Emergency Visit: Yes ED Registration Date: 10/29/16 Care time: The patient presented to the Emergency Department on the above date and was hospitalized for further evaluation of their emergent condition. Critical Care patient: Yes Total Critical Care Time (in minutes): 36 Critical Care Statement: The care of this patient involved high complexity decision making to prevent further life threatening deterioration of the patient 's condition and/or to evaluate & treat vital organ system(s) failure or risk of failure. <Rashel Raymundo - Last Filed: 10/29/16 15:08> This patient is new to me today: Yes Date on this admission: 11/01/16 Emergency Visit: Yes ED Registration Date: 10/29/16 Care time: The patient presented to the Emergency Department on the above date and was hospitalized for further evaluation of their emergent condition. Critical Care patient: No - Discharge Referral Referred to [facility] Med [facility] No <French Phipps - Last Filed: 11/01/16 16:49>
[2016-10-29] MEDS ORDERED: morphine CARPU-JECT 2 MG/1 ML DISP.SYRIN IVPUSH PRN (17:04)
[2016-10-29] MEDS ORDERED: PIPERACILLIN/TAZOBACTAM 4.5 GM VIAL IVPB ONE ×2 (17:24→23:42)
[2016-10-29] MEDS ORDERED: DEXTROSE 5%-WATER 100 ML IVPB ONE ×2 (17:25→23:42)
[2016-10-29] MEDS: METRONIDAZOLE 500 MG PREMIXED 100 ML IVPB SCH (17:33)
[2016-10-29] MEDS: PIPERACILLIN/TAZOB 4.5 GM 4.5 GM in DEXTROSE 5%-WATER 100 ML IVPB SCH ×2 (17:34→17:36)
[2016-10-29] MEDS ORDERED: PT OWN MED DRAWER 7, Y5N ONE (18:08)
[2016-10-29] MEDS: CITALOPRAM HYDROBROMIDE 20 MG TABLET (FP) PO SCH (21:01)
[2016-10-29] MEDS ORDERED: CHLORHEXIDINE GLUCONATE 4% CLEANSER FOR DECOLONIZATION TP SCH ×2 (22:00)
[2016-10-30] MEDS: PIPERACILLIN/TAZOB 4.5 GM 4.5 GM in DEXTROSE 5%-WATER 100 ML IVPB SCH ×3 (01:00→17:14)
[2016-10-30] MEDS: METRONIDAZOLE 500 MG PREMIXED 100 ML IVPB SCH ×3 (01:39→17:15)
[2016-10-30 07:11] LABS: BASOPHIL 0.8 % (0-2.0); EOSINOPHIL 1.2 % (0-4.5); MCH 31.5 pg (25.7-33.7); MCHC 33.5 g/dl (32.0-36.0); MEAN CELL VOLUME 94.1 fl (80-96); MEAN PLT VOLUME 6.9 fl (7.5-11.1); NEUTROPHILS 73.1 % (42.8-82.8); PLATELET COUNT 467 K/MM3 (134-434); RDW 13.1 % (11.6-15.6)
[2016-10-30 07:33] LABS: ALBUMIN 2.4 g/dl (3.4-5.0); ANION GAP 7 (8-16); BILIRUBIN,TOTAL 0.7 mg/dL (0.2-1.0); CALCIUM 8.6 mg/dL (8.5-10.1); CO2 26 mmol/L (21-32); CREATININE 0.7 mg/dL (0.55-1.02); GLUCOSE,RANDOM 91 mg/dL (74-106); SGOT/AST 12 U/L (15-37); SGPT/ALT 12 U/L (12-78); TOT PROT 5.7 g/dl (6.4-8.2)
[2016-10-30 07:34] LABS: ALK PHOS 56 U/L (45-117)
[2016-10-30] MEDS: PIPERACILLIN/TAZOB 3.375 GM 3.375 GM in DEXTROSE 5%-WATER - 50 ML IVPB SCH ×2 (08:04→08:05)
[2016-10-30] MEDS: SODIUM CHLORIDE 1,000 ML IV SCH ×2 (08:04→17:14)
[2016-10-30] MEDS ORDERED: DEXTROSE 5%-WATER 100 ML IVPB ONE ×3 (09:17→20:06)
[2016-10-30] MEDS ORDERED: PIPERACILLIN/TAZOBACTAM 4.5 GM VIAL IVPB ONE ×3 (09:17→20:06)
[2016-10-30] MEDS: CITALOPRAM HYDROBROMIDE 20 MG TABLET (FP) PO SCH (09:54)
[2016-10-30] MEDS: PANTOPRAZOLE SODIUM 40 MG in SODIUM CHLORIDE 100 ML IVPB SCH (09:56)
--- NOTE | 2016-10-30 11:16 | PN ---
<Rashel Raymundo - Last Filed: 10/31/16 06:58> Physical Exam: SUBJECTIVE: Patient seen and examined. No acute events overnight. Pt endorses some mild abdominal pain in the LLQ, same as yesterday, and 2 episodes of hematochezia. She denies nausea, emesis, constipation, SOB, lightheadedness, and chest pain. OBJECTIVE: Vital Signs Period Temp Pulse Resp BP Sys/Saenz Pulse Ox Last 24 Hr 98.2 F-98.8 F 66-80 11-20 111-142/56-95 96-100 GENERAL: The patient is awake, alert, and fully oriented, in no acute distress. HEAD: Normal with no signs of trauma. EYES: PERRL, extraocular movements intact, sclera anicteric, conjunctiva clear. No ptosis. ENT: Ears normal, nares patent, oropharynx clear without exudates, moist mucous membranes. NECK: Trachea midline, full range of motion, supple. LUNGS: Breath sounds equal, clear to auscultation bilaterally, no wheezes, no crackles, no accessory muscle use. HEART: Regular rate and rhythm, S1, S2 without murmur, rub or gallop. ABDOMEN: Soft, minimally tender in LLQ, nondistended, hyperactive bowel sounds, no guarding, no rebound, no hepatosplenomegaly, no masses. EXTREMITIES: 2+ pulses, warm, well-perfused, no edema. NEUROLOGICAL: Cranial nerves II through XII grossly intact. Normal speech, gait not observed. PSYCH: Normal mood, normal affect. SKIN: Warm, dry, normal turgor, no rashes or lesions noted Laboratory Results - last 24 hr 10/30/16 10/30/16 06:00 06:00 WBC 11.0 H RBC 3.61 Hgb 11.4 Hct 34.0 MCV 94.1 MCH 31.5 MCHC 33.5 RDW 13.1 Plt Count 467 H MPV 6.9 L Neutrophils % 73.1 Lymphocytes % 16.0 D Monocytes % 8.9 Eosinophils % 1.2 D Basophils % 0.8 Sodium 141 Potassium 3.8 Chloride 108 H Carbon Dioxide 26 Anion Gap 7 L BUN 8 D Creatinine 0.7 Creat Clearance w eGFR > 60 Random Glucose 91 D Calcium 8.6 Total Bilirubin 0.7 AST 12 L ALT 12 Alkaline Phosphatase 56 Total Protein 5.7 L Albumin 2.4 L Active Medications Generic Name Dose Route Start Last Admin Trade Name Freq PRN Reason Stop Dose Admin Citalopram Hydrobromide 20 mg 10/29/16 15:00 10/30/16 09:54 Celexa - PO 20 mg DAILY SOM Administration Piperacillin Sod/Tazobactam 100 mls @ 200 mls/hr 10/29/16 15:15 10/30/16 09:55 Sod 4.5 gm/ Dextrose IVPB 200 mls/hr Q8H-IV SOM Administration Protocol Metronidazole 100 mls @ 100 mls/hr 10/29/16 18:00 10/30/16 09:55 Flagyl 500mg Premixed Ivpb - IVPB 100 mls/hr Q8H-IV SOM Administration Pantoprazole Sodium 40 mg/ 100 mls @ 200 mls/hr 10/30/16 10:00 10/30/16 09:56 Sodium Chloride IVPB 200 mls/hr DAILY SOM Administration Sodium Chloride 1,000 mls @ 100 mls/hr 10/29/16 15:48 10/29/16 17:35 Normal Saline - IV 100 mls/hr ASDIR SOM Administration Morphine Sulfate 2 mg 10/29/16 17:04 10/29/16 17:33 Morphine Injection - IVPUSH 2 mg Q4H PRN Administration PAIN Promethazine HCl 12.5 mg 10/29/16 15:48 Phenergan Injection - IVPB Q4H PRN NAUSEA AND/OR VOMITING ASSESSMENT/PLAN: 76F with pmh of diverticulitis presenting with LLQ abdominal pain and hematochezia, found to have bowel abscess and perforation, s/p I&D by IR on 10/29 , awaiting bed at [facility] for colorectal surgery. #Bowel abscess- s/p IR guided abscess drainage on 10/29 -NPO, continue zosyn and flagyl, IV protonix 40 mg IV daily, IVF NS @ 100 cc/hr -F/U lactic acid, BCX, UCX -Monitor abdominal exam, if patient worsens, pt may need to go for urgent surgery -ID, surgery, IR, and ICU consulted -wbc trending down, now 11, continue to trend #Bowel perforation/colitis -awaiting bed availability at [facility], pt to receive colorectal surgery -serial abdominal exams -NPO, continue zosyn and flagyl, IV protonix 40 mg IV daily, IVF NS @ 100 cc/hr -pain control with morphine #hematochezia -H/H wnl -Continue to monitor H/H #Depression -continue celexa 20 mg po daily with small sips of water #FEN/GI -IVF NS @ 100 cc/hr -WNL -NPO #PPx -DVT- SCDs -GI- Protonix 40 mg IV daily #Dispo -awaiting bed availability at [facility], already accepted for transfer. -pt requesting colorectal surgery by Dr. Kyle Park at [facility] ). He was contacted and stated that he would be in touch with the accepting physician (Dr. Elba Raman). ---- Rashel Raymundo MD PGY1 Visit type - Emergency Visit Emergency Visit: Yes ED Registration Date: 10/29/16 Care time: The patient presented to the Emergency Department on the above date and was hospitalized for further evaluation of their emergent condition. - New Patient This patient is new to me today: No - Critical Care Critical Care patient: Yes - Discharge Referral Referred to [facility] Med [facility] No <French Phipps - Last Filed: 11/01/16 16:49> Physical Exam: SUBJECTIVE: Patient seen and examined OBJECTIVE: Vital Signs Period Temp Pulse Resp BP Sys/Saenz Pulse Ox Last 24 Hr 97.8 F-98.0 F 61-66 18-20 137-148/60-82 GENERAL: The patient is awake, alert, and fully oriented, in no acute distress. HEAD: Normal with no signs of trauma. EYES: PERRL, extraocular movements intact, sclera anicteric, conjunctiva clear. No ptosis. ENT: Ears normal, nares patent, oropharynx clear without exudates, moist mucous membranes. NECK: Trachea midline, full range of motion, supple. LUNGS: Breath sounds equal, clear to auscultation bilaterally, no wheezes, no crackles, no accessory muscle use. HEART: Regular rate and rhythm, S1, S2 without murmur, rub or gallop. ABDOMEN: Soft, nontender, nondistended, normoactive bowel sounds, no guarding, no rebound, no hepatosplenomegaly, no masses. EXTREMITIES: 2+ pulses, warm, well-perfused, no edema. NEUROLOGICAL: Cranial nerves II through XII grossly intact. Normal speech, gait not observed. PSYCH: Normal mood, normal affect. SKIN: Warm, dry, normal turgor, no rashes or lesions noted Laboratory Results - last 24 hr 11/01/16 11/01/16 11/01/16 06:30 06:30 06:30 WBC 7.9 RBC 3.57 L Hgb 11.4 Hct 33.4 MCV 93.6 MCH 31.9 MCHC 34.0 RDW 13.2 Plt Count 448 H MPV 7.4 L D Neutrophils % 60.8 Lymphocytes % 24.2 Monocytes % 9.1 Eosinophils % 4.6 H Basophils % 1.3 Sodium 141 Potassium 3.8 Chloride 105 Carbon Dioxide 23 Anion Gap 13 BUN 9 Creatinine 0.7 Creat Clearance w eGFR > 60 Random Glucose 112 H D Lactic Acid 0.7 Calcium 8.4 L Total Bilirubin 0.8 AST 14 L ALT 12 Alkaline Phosphatase 52 Total Protein 5.8 L Albumin 2.6 L Active Medications Generic Name Dose Route Start Last Admin Trade Name Freq PRN Reason Stop Dose Admin Citalopram Hydrobromide 20 mg 10/29/16 15:00 11/01/16 09:20 Celexa - PO 20 mg DAILY SOM Administration Piperacillin Sod/Tazobactam 100 mls @ 200 mls/hr 10/29/16 15:15 11/01/16 09:20 Sod 4.5 gm/ Dextrose IVPB 200 mls/hr Q8H-IV SOM Administration Protocol Metronidazole 100 mls @ 100 mls/hr 10/29/16 18:00 11/01/16 09:20 Flagyl 500mg Premixed Ivpb - IVPB 100 mls/hr Q8H-IV SOM Administration Pantoprazole Sodium 40 mg/ 100 mls @ 200 mls/hr 10/30/16 10:00 11/01/16 11:11 Sodium Chloride IVPB 200 mls/hr DAILY SOM Administration Amino Acids 1,000 mls @ 84 mls/hr 11/01/16 10:45 11/01/16 12:41 Clinimix - IV 84 mls/hr Q12H SOM Administration Morphine Sulfate 2 mg 10/29/16 17:04 10/29/16 17:33 Morphine Injection - IVPUSH 2 mg Q4H PRN Administration PAIN Multivitamins/Minerals 10 ml 11/01/16 10:45 11/01/16 12:55 Infuvite Adult - IV 10 ml Q24H SOM Administration Promethazine HCl 12.5 mg 10/29/16 15:48 10/30/16 17:46 Phenergan Injection - IVPB 12.5 mg Q4H PRN Administration NAUSEA AND/OR VOMITING ASSESSMENT/PLAN:
--- NOTE | 2016-10-30 12:30 | PN ---
Progress Note, Physician History of Present Illness: was feeling better starting having pain now with pain - Current Medication List Current Medications: Active Medications Citalopram Hydrobromide (Celexa -) 20 mg PO DAILY [facility] Last Admin: 10/30/16 09:54 Dose: 20 mg Piperacillin Sod/Tazobactam (Sod 4.5 gm/ Dextrose) 100 mls @ 200 mls/hr IVPB Q8H-IV SOM PRN Reason: Protocol Last Admin: 10/30/16 09:55 Dose: 200 mls/hr Metronidazole (Flagyl 500mg Premixed Ivpb -) 100 mls @ 100 mls/hr IVPB Q8H-IV SOM Last Admin: 10/30/16 09:55 Dose: 100 mls/hr Pantoprazole Sodium 40 mg/ (Sodium Chloride) 100 mls @ 200 mls/hr IVPB DAILY [facility] Last Admin: 10/30/16 09:56 Dose: 200 mls/hr Sodium Chloride (Normal Saline -) 1,000 mls @ 100 mls/hr IV ASDIR [facility] Last Admin: 10/29/16 17:35 Dose: 100 mls/hr Morphine Sulfate (Morphine Injection -) 2 mg IVPUSH Q4H PRN PRN Reason: PAIN Last Admin: 10/29/16 17:33 Dose: 2 mg Promethazine HCl (Phenergan Injection -) 12.5 mg IVPB Q4H PRN PRN Reason: NAUSEA AND/OR VOMITING - Objective Vital Signs: Vital Signs Temperature 98.2 F 10/30/16 08:25 Pulse Rate 80 10/30/16 08:25 Respiratory Rate 20 10/30/16 08:25 Blood Pressure 127/67 10/30/16 08:25 O2 Sat by Pulse Oximetry (%) 96 10/30/16 09:00 Constitutional: Yes: Calm, Mild Distress Cardiovascular: Yes: Regular Rate and Rhythm Respiratory: Yes: Regular, CTA Bilaterally Gastrointestinal: Yes: Soft, Other (absent bowel souns joaquin drian in place pus) Musculoskeletal: Yes: WNL Extremities: Yes: WNL Neurological: Yes: Alert, Oriented Psychiatric: Yes: Alert, Oriented Labs: CBC, BMP 10/30/16 06:00 10/30/16 06:00 INR, PTT INR 1.37 (0.82-1.09) H 09/12/17 07:30 Assessment/Plan retroperitoneal abscess abd pain plan continue abx hydration plan to transfer to [place] when bed available for further mgmt rest as per primary team
--- NOTE | 2016-10-30 16:18 | PN ---
Teaching Attending Note Name of Resident: Rashel Raymundo ATTENDING PHYSICIAN STATEMENT I saw and evaluated the patient. I reviewed the resident's note and discussed the case with the resident. I agree with the resident's findings and plan as documented. SUBJECTIVE: Patient is a very pleasant lady, daughter at bedside. Has no new complains. Only complains now, LUQ 04/26. OBJECTIVE: Vital Signs Temperature 98.1 F 10/30/16 15:06 Pulse Rate 70 10/30/16 15:06 Respiratory Rate 20 10/30/16 15:06 Blood Pressure 128/66 10/30/16 15:06 O2 Sat by Pulse Oximetry (%) 96 10/30/16 09:00 CBCD WBC 11.0 K/mm3 (4.0-10.0) H 10/30/16 06:00 RBC 3.61 M/mm3 (3.60-5.2) 10/30/16 06:00 Hgb 11.4 GM/dL (10.7-15.3) 10/30/16 06:00 Hct 34.0 % (32.4-45.2) 10/30/16 06:00 MCV 94.1 fl (80-96) 10/30/16 06:00 MCHC 33.5 g/dl (32.0-36.0) 10/30/16 06:00 RDW 13.1 % (11.6-15.6) 10/30/16 06:00 Plt Count 467 K/MM3 (134-434) H 10/30/16 06:00 MPV 6.9 fl (7.5-11.1) L 10/30/16 06:00 CMP Sodium 141 mmol/L (136-145) 10/30/16 06:00 Potassium 3.8 mmol/L (3.5-5.1) 10/30/16 06:00 Chloride 108 mmol/L (98-107) H 10/30/16 06:00 Carbon Dioxide 26 mmol/L (21-32) 10/30/16 06:00 Anion Gap 7 (8-16) L 10/30/16 06:00 BUN 8 mg/dL (7-18) D 10/30/16 06:00 Creatinine 0.7 mg/dL (0.55-1.02) 10/30/16 06:00 Creat Clearance w eGFR > 60 (>60) 10/30/16 06:00 Random Glucose 91 mg/dL (74-106) D 10/30/16 06:00 Calcium 8.6 mg/dL (8.5-10.1) 10/30/16 06:00 Total Bilirubin 0.7 mg/dL (0.2-1.0) 10/30/16 06:00 AST 12 U/L (15-37) L 10/30/16 06:00 ALT 12 U/L (12-78) 10/30/16 06:00 Alkaline Phosphatase 56 U/L (45-117) 10/30/16 06:00 Total Protein 5.7 g/dl (6.4-8.2) L 10/30/16 06:00 Albumin 2.4 g/dl (3.4-5.0) L 10/30/16 06:00 Current Medications Generic Name Dose Route Start Last Admin Trade Name Freq PRN Reason Stop Dose Admin Citalopram Hydrobromide 20 mg 10/29/16 15:00 10/30/16 09:54 Celexa - PO 20 mg DAILY SOM Administration Piperacillin Sod/Tazobactam 100 mls @ 200 mls/hr 10/29/16 15:15 10/30/16 09:55 Sod 4.5 gm/ Dextrose IVPB 200 mls/hr Q8H-IV SOM Administration Protocol Metronidazole 100 mls @ 100 mls/hr 10/29/16 18:00 10/30/16 09:55 Flagyl 500mg Premixed Ivpb - IVPB 100 mls/hr Q8H-IV SOM Administration Pantoprazole Sodium 40 mg/ 100 mls @ 200 mls/hr 10/30/16 10:00 10/30/16 09:56 Sodium Chloride IVPB 200 mls/hr DAILY SOM Administration Sodium Chloride 1,000 mls @ 100 mls/hr 10/29/16 15:48 10/29/16 17:35 Normal Saline - IV 100 mls/hr ASDIR SOM Administration Morphine Sulfate 2 mg 10/29/16 17:04 10/29/16 17:33 Morphine Injection - IVPUSH 2 mg Q4H PRN Administration PAIN Promethazine HCl 12.5 mg 10/29/16 15:48 Phenergan Injection - IVPB Q4H PRN NAUSEA AND/OR VOMITING Home Medications Medication Instructions Recorded Citalopram Hydrobromide [Celexa -] 20 mg PO DAILY 10/28/16 Aspirin [Aspirin EC] 81 mg PO DAILY #30 tablet. 10/29/16 PE: abdomen; LUQ mild tenderness on palpation , Positive for JACKIE drainage, around 10cc of serosanguonous fluid. rest of PE per resident. ASSESSMENT AND PLAN: 76 y/o lady withh/o diverticulitis who presented with abd pain , she was found tohave colon perforation and pelvic abscess # Rectal abscess and perforated bowel, on JACKIE drainage now, stable . Nl lactic acid and no peritoneal signs on exam. with hx of Diverticulitis s/p perforation on admission on IV antibiotics continue zosyn, and flagyl; s/p IR drainage of abscess. As per Dr Jessenia Zuniga, to Tx the patient to tertiary care center , waiting for a bed at [facility]. cont IVF , pain control if needed , continue NPO for now . c diff is pending # hx of depression : continue celexa with sips of water to avoid withdrawal sx # HX OF hematoschezia : possible isChemia or infection plan for Tx to tertiary center. WHEN BED IS AVAILABLE, PATIENT IS accepted dvT PX: scDS
[2016-10-31] MEDS: PIPERACILLIN/TAZOB 4.5 GM 4.5 GM in DEXTROSE 5%-WATER 100 ML IVPB SCH ×3 (01:11→17:37)
[2016-10-31] MEDS: SODIUM CHLORIDE 1,000 ML IV SCH (01:11)
[2016-10-31] MEDS: METRONIDAZOLE 500 MG PREMIXED 100 ML IVPB SCH ×3 (02:15→17:37)
[2016-10-31] MEDS ORDERED: PIPERACILLIN/TAZOBACTAM 4.5 GM VIAL IVPB ONE ×3 (08:04→22:07)
[2016-10-31] MEDS ORDERED: DEXTROSE 5%-WATER 100 ML IVPB ONE ×3 (08:05→22:07)
[2016-10-31 08:26] LABS: BASOPHIL 0.6 % (0-2.0); EOSINOPHIL 3.2 % (0-4.5); MCH 31.3 pg (25.7-33.7); MCHC 33.4 g/dl (32.0-36.0); MEAN CELL VOLUME 93.7 fl (80-96); MEAN PLT VOLUME 6.7 fl (7.5-11.1); PLATELET COUNT 481 K/MM3 (134-434); RDW 13.3 % (11.6-15.6); WHITE BLOOD COUNT 9.1 K/mm3 (4.0-10.0)
[2016-10-31 08:54] LABS: ALBUMIN 2.7 g/dl (3.4-5.0); ALK PHOS 58 U/L (45-117); ANION GAP 14 (8-16); BILIRUBIN,TOTAL 0.7 mg/dL (0.2-1.0); CALCIUM 8.7 mg/dL (8.5-10.1); CO2 21 mmol/L (21-32); CREATININE 0.7 mg/dL (0.55-1.02); GLUCOSE,RANDOM 69 mg/dL (74-106); SGOT/AST 14 U/L (15-37); SGPT/ALT 13 U/L (12-78)
[2016-10-31] MEDS: DEXTROSE 5%-0.45% SALINE 1,000 ML IV SCH (09:57)
[2016-10-31] MEDS: CITALOPRAM HYDROBROMIDE 20 MG TABLET (FP) PO SCH (10:53)
[2016-10-31] MEDS: PANTOPRAZOLE SODIUM 40 MG in SODIUM CHLORIDE 100 ML IVPB SCH (10:53)
--- NOTE | 2016-10-31 11:44 | PN ---
Physical Exam: SUBJECTIVE: Patient seen and examined. No acute events overnight. Pt reports that she no longer has nausea, her abdominal pain went from 3/10 to 1/10, and she had 2 BMs yesterday without any visible blood. She reports no SOB, chest pain, lightheadedness or any other complaint. OBJECTIVE: Vital Signs Period Temp Pulse Resp BP Sys/Saenz Pulse Ox Last 24 Hr 97.9 F-98.5 F 60-70 20-20 118-134/58-66 96 GENERAL: The patient is awake, alert, and fully oriented, in no acute distress. HEAD: Normal with no signs of trauma. EYES: PERRL, extraocular movements intact, sclera anicteric, conjunctiva clear. No ptosis. ENT: Ears normal, nares patent, oropharynx clear without exudates, moist mucous membranes. NECK: Trachea midline, full range of motion, supple. LUNGS: Breath sounds equal, clear to auscultation bilaterally, no wheezes, no crackles, no accessory muscle use. HEART: Regular rate and rhythm, S1, S2 without murmur, rub or gallop. ABDOMEN: hyperactive bowel sounds, minimally tender to palpation in LLQ, soft, ND, no peritoneal signs EXTREMITIES: 2+ pulses, warm, well-perfused, no edema. NEUROLOGICAL: Cranial nerves II through XII grossly intact. Normal speech, gait not observed. PSYCH: Normal mood, normal affect. SKIN: Warm, dry, normal turgor, no rashes or lesions noted Laboratory Results - last 24 hr 10/31/16 10/31/16 10/31/16 08:15 08:15 08:15 WBC 9.1 RBC 3.79 Hgb 11.9 Hct 35.6 MCV 93.7 MCH 31.3 MCHC 33.4 RDW 13.3 Plt Count 481 H MPV 6.7 L Neutrophils % 60.0 Lymphocytes % 26.8 D Monocytes % 9.4 Eosinophils % 3.2 D Basophils % 0.6 Sodium 141 Potassium 3.6 Chloride 106 Carbon Dioxide 21 Anion Gap 14 BUN 10 D Creatinine 0.7 Creat Clearance w eGFR > 60 Random Glucose 69 L D Lactic Acid 0.8 Calcium 8.7 Total Bilirubin 0.7 AST 14 L ALT 13 Alkaline Phosphatase 58 Total Protein 6.0 L Albumin 2.7 L Active Medications Generic Name Dose Route Start Last Admin Trade Name Freq PRN Reason Stop Dose Admin Citalopram Hydrobromide 20 mg 10/29/16 15:00 10/31/16 10:53 Celexa - PO 20 mg DAILY SOM Administration Piperacillin Sod/Tazobactam 100 mls @ 200 mls/hr 10/29/16 15:15 10/31/16 10:53 Sod 4.5 gm/ Dextrose IVPB 200 mls/hr Q8H-IV SOM Administration Protocol Metronidazole 100 mls @ 100 mls/hr 10/29/16 18:00 10/31/16 09:58 Flagyl 500mg Premixed Ivpb - IVPB 100 mls/hr Q8H-IV SOM Administration Pantoprazole Sodium 40 mg/ 100 mls @ 200 mls/hr 10/30/16 10:00 10/31/16 10:53 Sodium Chloride IVPB 200 mls/hr DAILY SOM Administration Dextrose/Sodium Chloride 1,000 mls @ 125 mls/hr 10/31/16 09:30 10/31/16 09:57 D5-1/2ns - IV 125 mls/hr ASDIR SOM Administration Morphine Sulfate 2 mg 10/29/16 17:04 10/29/16 17:33 Morphine Injection - IVPUSH 2 mg Q4H PRN Administration PAIN Promethazine HCl 12.5 mg 10/29/16 15:48 10/30/16 17:46 Phenergan Injection - IVPB 12.5 mg Q4H PRN Administration NAUSEA AND/OR VOMITING ASSESSMENT/PLAN: 76F with pmh of diverticulitis presenting with LLQ abdominal pain and hematochezia, found to have bowel abscess and perforation, s/p I&D by IR on 10/29 , awaiting bed at [facility] for colorectal surgery. #Bowel abscess- s/p IR guided abscess drainage on 10/29 -NPO, continue zosyn and flagyl, IV protonix 40 mg IV daily, D5-1/2 NS @ 125 cc/ hr -lactic acid: 0.8 -BCX: no growth to date -Monitor abdominal exam, if patient worsens, pt may need to go for urgent surgery -ID, surgery, IR, and ICU on board -wbc trending down, now 9, continue to trend #Bowel perforation/colitis -awaiting bed availability at [facility], pt to receive colorectal surgery -serial abdominal exams -NPO, continue zosyn and flagyl, IV protonix 40 mg IV daily, D5-1/2 NS @ 125 cc/ hr -pain control with morphine PRN #hematochezia -H/H wnl -Continue to monitor H/H #Diarrhea -f/u C. diff antigen #mild hypoglycemia -switched from NS to D5-1/2 NS -BGM #Depression -continue celexa 20 mg po daily with small sips of water #FEN/GI -D5-1/2 NS @ 125 cc/hr -WNL -NPO #PPx -DVT- SCDs -GI- Protonix 40 mg IV daily #Dispo -awaiting bed availability at [facility], already accepted for transfer. -pt requesting colorectal surgery by Dr. Kyle Park at [facility] ). He was contacted and stated that he would be in touch with the accepting physician (Dr. Elba Raman). ---- Rashel Raymundo MD PGY1 Visit type - Emergency Visit Emergency Visit: Yes ED Registration Date: 10/29/16 Care time: The patient presented to the Emergency Department on the above date and was hospitalized for further evaluation of their emergent condition. - New Patient This patient is new to me today: No - Critical Care Critical Care patient: No - Discharge Referral Referred to [facility] No
--- NOTE | 2016-10-31 12:21 | PN ---
Teaching Attending Note Name of Resident: Rashel Raymundo ATTENDING PHYSICIAN STATEMENT I saw and evaluated the patient. I reviewed the resident's note and discussed the case with the resident. I agree with the resident's findings and plan as documented. SUBJECTIVE: Patient is comfortable, less abdominal pain today. OBJECTIVE: Vital Signs Temperature 98.5 F 10/31/16 05:00 Pulse Rate 62 10/31/16 05:00 Respiratory Rate 20 10/31/16 05:00 Blood Pressure 118/58 10/31/16 05:00 O2 Sat by Pulse Oximetry (%) 96 10/30/16 21:00 CBCD WBC 9.1 K/mm3 (4.0-10.0) 10/31/16 08:15 RBC 3.79 M/mm3 (3.60-5.2) 10/31/16 08:15 Hgb 11.9 GM/dL (10.7-15.3) 10/31/16 08:15 Hct 35.6 % (32.4-45.2) 10/31/16 08:15 MCV 93.7 fl (80-96) 10/31/16 08:15 MCHC 33.4 g/dl (32.0-36.0) 10/31/16 08:15 RDW 13.3 % (11.6-15.6) 10/31/16 08:15 Plt Count 481 K/MM3 (134-434) H 10/31/16 08:15 MPV 6.7 fl (7.5-11.1) L 10/31/16 08:15 CMP Sodium 141 mmol/L (136-145) 10/31/16 08:15 Potassium 3.6 mmol/L (3.5-5.1) 10/31/16 08:15 Chloride 106 mmol/L (98-107) 10/31/16 08:15 Carbon Dioxide 21 mmol/L (21-32) 10/31/16 08:15 Anion Gap 14 (8-16) 10/31/16 08:15 BUN 10 mg/dL (7-18) D 10/31/16 08:15 Creatinine 0.7 mg/dL (0.55-1.02) 10/31/16 08:15 Creat Clearance w eGFR > 60 (>60) 10/31/16 08:15 Random Glucose 69 mg/dL (74-106) L D 10/31/16 08:15 Calcium 8.7 mg/dL (8.5-10.1) 10/31/16 08:15 Total Bilirubin 0.7 mg/dL (0.2-1.0) 10/31/16 08:15 AST 14 U/L (15-37) L 10/31/16 08:15 ALT 13 U/L (12-78) 10/31/16 08:15 Alkaline Phosphatase 58 U/L (45-117) 10/31/16 08:15 Total Protein 6.0 g/dl (6.4-8.2) L 10/31/16 08:15 Albumin 2.7 g/dl (3.4-5.0) L 10/31/16 08:15 Current Medications Generic Name Dose Route Start Last Admin Trade Name Freq PRN Reason Stop Dose Admin Citalopram Hydrobromide 20 mg 10/29/16 15:00 10/31/16 10:53 Celexa - PO 20 mg DAILY SOM Administration Piperacillin Sod/Tazobactam 100 mls @ 200 mls/hr 10/29/16 15:15 10/31/16 10:53 Sod 4.5 gm/ Dextrose IVPB 200 mls/hr Q8H-IV SOM Administration Protocol Metronidazole 100 mls @ 100 mls/hr 10/29/16 18:00 10/31/16 09:58 Flagyl 500mg Premixed Ivpb - IVPB 100 mls/hr Q8H-IV SOM Administration Pantoprazole Sodium 40 mg/ 100 mls @ 200 mls/hr 10/30/16 10:00 10/31/16 10:53 Sodium Chloride IVPB 200 mls/hr DAILY SOM Administration Dextrose/Sodium Chloride 1,000 mls @ 125 mls/hr 10/31/16 09:30 10/31/16 09:57 D5-1/2ns - IV 125 mls/hr ASDIR SOM Administration Morphine Sulfate 2 mg 10/29/16 17:04 10/29/16 17:33 Morphine Injection - IVPUSH 2 mg Q4H PRN Administration PAIN Promethazine HCl 12.5 mg 10/29/16 15:48 10/30/16 17:46 Phenergan Injection - IVPB 12.5 mg Q4H PRN Administration NAUSEA AND/OR VOMITING Home Medications Medication Instructions Recorded Citalopram Hydrobromide [Celexa -] 20 mg PO DAILY 10/28/16 Aspirin [Aspirin EC] 81 mg PO DAILY #30 tablet. 10/29/16 PE: abdomen: mild tenderness on lUQ, positive for JACKIE drainage serosingounous fluid. ASSESSMENT AND PLAN: 76 y/o lady with h/o diverticulitis who presented with abdominal pain , she was found to have colon perforation and a pelvic abscess # Rectal abscess and perforated bowel, on JACKIE drainage now, stable . no peritoneal signs on exam. with hx of Diverticulitis s/p perforation on admission on IV antibiotics continue zosyn, and flagyl continue ; s/p IR drainage of abscess. As per Dr Jessenia Zuniga, to Tx the patient to tertiary care center , waiting for a bed at [facility]. cont IVF , pain control if needed , continue NPO for now . # hx of depression : continue celexa with sips of water to avoid withdrawal sx # HX OF hematoschezia : possible ischemia or infection Plan for Tx to tertiary center. WHEN BED IS AVAILABLE, PATIENT IS accepted dvT PX: scDS
--- NOTE | 2016-10-31 14:23 | PN ---
Progress Note, Physician History of Present Illness: continues to remain stable awaiting for bed wbc normal - Current Medication List Current Medications: Active Medications Citalopram Hydrobromide (Celexa -) 20 mg PO DAILY [facility] Last Admin: 10/31/16 10:53 Dose: 20 mg Piperacillin Sod/Tazobactam (Sod 4.5 gm/ Dextrose) 100 mls @ 200 mls/hr IVPB Q8H-IV SOM PRN Reason: Protocol Last Admin: 10/31/16 10:53 Dose: 200 mls/hr Metronidazole (Flagyl 500mg Premixed Ivpb -) 100 mls @ 100 mls/hr IVPB Q8H-IV SOM Last Admin: 10/31/16 09:58 Dose: 100 mls/hr Pantoprazole Sodium 40 mg/ (Sodium Chloride) 100 mls @ 200 mls/hr IVPB DAILY [facility] Last Admin: 10/31/16 10:53 Dose: 200 mls/hr Dextrose/Sodium Chloride (D5-1/2ns -) 1,000 mls @ 125 mls/hr IV ASDIR [facility] Last Admin: 10/31/16 09:57 Dose: 125 mls/hr Morphine Sulfate (Morphine Injection -) 2 mg IVPUSH Q4H PRN PRN Reason: PAIN Last Admin: 10/29/16 17:33 Dose: 2 mg Promethazine HCl (Phenergan Injection -) 12.5 mg IVPB Q4H PRN PRN Reason: NAUSEA AND/OR VOMITING Last Admin: 10/30/16 17:46 Dose: 12.5 mg - Objective Vital Signs: Vital Signs Temperature 98.5 F 10/31/16 05:00 Pulse Rate 62 10/31/16 05:00 Respiratory Rate 20 10/31/16 05:00 Blood Pressure 118/58 10/31/16 05:00 O2 Sat by Pulse Oximetry (%) 96 10/30/16 21:00 Constitutional: Yes: Calm, Mild Distress Cardiovascular: Yes: Regular Rate and Rhythm Respiratory: Yes: Regular, CTA Bilaterally Gastrointestinal: Yes: Soft, Other (absent bowel sounds draiange in place) Musculoskeletal: Yes: WNL Extremities: Yes: WNL Neurological: Yes: Alert, Oriented Psychiatric: Yes: Alert, Oriented Labs: CBC, BMP 10/31/16 08:15 10/31/16 08:15 INR, PTT INR 1.37 (0.82-1.09) H 10/29/16 07:30 Assessment/Plan retroperitoneal abscess abd pain plan continue abx hydration plan to transfer to [place] when bed available for further mgmt rest as per primary team continue very close watch
[2016-11-01] MEDS: PIPERACILLIN/TAZOB 4.5 GM 4.5 GM in DEXTROSE 5%-WATER 100 ML IVPB SCH ×3 (01:00→17:10)
[2016-11-01] MEDS: METRONIDAZOLE 500 MG PREMIXED 100 ML IVPB SCH ×3 (01:28→17:10)
[2016-11-01 07:41] LABS: BASOPHIL 1.3 % (0-2.0); EOSINOPHIL 4.6 % (0-4.5); MCH 31.9 pg (25.7-33.7); MEAN CELL VOLUME 93.6 fl (80-96); MEAN PLT VOLUME 7.4 fl (7.5-11.1); NEUTROPHILS 60.8 % (42.8-82.8); PLATELET COUNT 448 K/MM3 (134-434); RDW 13.2 % (11.6-15.6); WHITE BLOOD COUNT 7.9 K/mm3 (4.0-10.0)
[2016-11-01] MEDS ORDERED: PIPERACILLIN/TAZOBACTAM 4.5 GM VIAL IVPB ONE ×2 (08:17→17:07)
[2016-11-01] MEDS ORDERED: DEXTROSE 5%-WATER 100 ML IVPB ONE ×2 (08:17→17:07)
[2016-11-01 08:18] LABS: ALBUMIN 2.6 g/dl (3.4-5.0); ALK PHOS 52 U/L (45-117); ANION GAP 13 (8-16); BILIRUBIN,TOTAL 0.8 mg/dL (0.2-1.0); CALCIUM 8.4 mg/dL (8.5-10.1); CO2 23 mmol/L (21-32); CREATININE 0.7 mg/dL (0.55-1.02); GLUCOSE,RANDOM 112 mg/dL (74-106); SGOT/AST 14 U/L (15-37); SGPT/ALT 12 U/L (12-78); TOT PROT 5.8 g/dl (6.4-8.2)
[2016-11-01] MEDS: CITALOPRAM HYDROBROMIDE 20 MG TABLET (FP) PO SCH (09:20)
[2016-11-01] MEDS: DEXTROSE 5%-0.45% SALINE 1,000 ML IV SCH (10:25)
--- NOTE | 2016-11-01 10:38 | PN ---
Teaching Attending Note Name of Resident: Rashel Raymundo ATTENDING PHYSICIAN STATEMENT I saw and evaluated the patient. I reviewed the resident's note and discussed the case with the resident. I agree with the resident's findings and plan as documented. SUBJECTIVE: Patient is feeling better today. no LUQ pain. continues to be NPO. OBJECTIVE: Vital Signs Temperature 98.0 F 11/01/16 14:29 Pulse Rate 61 11/01/16 14:29 Respiratory Rate 18 11/01/16 14:29 Blood Pressure 148/77 11/01/16 14:29 O2 Sat by Pulse Oximetry (%) 96 10/30/16 21:00 CBCD WBC 7.9 K/mm3 (4.0-10.0) 11/01/16 06:30 RBC 3.57 M/mm3 (3.60-5.2) L 11/01/16 06:30 Hgb 11.4 GM/dL (10.7-15.3) 11/01/16 06:30 Hct 33.4 % (32.4-45.2) 11/01/16 06:30 MCV 93.6 fl (80-96) 11/01/16 06:30 MCHC 34.0 g/dl (32.0-36.0) 11/01/16 06:30 RDW 13.2 % (11.6-15.6) 11/01/16 06:30 Plt Count 448 K/MM3 (134-434) H 11/01/16 06:30 MPV 7.4 fl (7.5-11.1) L D 11/01/16 06:30 CMP Sodium 141 mmol/L (136-145) 11/01/16 06:30 Potassium 3.8 mmol/L (3.5-5.1) 11/01/16 06:30 Chloride 105 mmol/L (98-107) 11/01/16 06:30 Carbon Dioxide 23 mmol/L (21-32) 11/01/16 06:30 Anion Gap 13 (8-16) 11/01/16 06:30 BUN 9 mg/dL (7-18) 11/01/16 06:30 Creatinine 0.7 mg/dL (0.55-1.02) 11/01/16 06:30 Creat Clearance w eGFR > 60 (>60) 11/01/16 06:30 Random Glucose 112 mg/dL (74-106) H D 11/01/16 06:30 Calcium 8.4 mg/dL (8.5-10.1) L 11/01/16 06:30 Total Bilirubin 0.8 mg/dL (0.2-1.0) 11/01/16 06:30 AST 14 U/L (15-37) L 11/01/16 06:30 ALT 12 U/L (12-78) 11/01/16 06:30 Alkaline Phosphatase 52 U/L (45-117) 11/01/16 06:30 Total Protein 5.8 g/dl (6.4-8.2) L 11/01/16 06:30 Albumin 2.6 g/dl (3.4-5.0) L 11/01/16 06:30 Current Medications Generic Name Dose Route Start Last Admin Trade Name Freq PRN Reason Stop Dose Admin Citalopram Hydrobromide 20 mg 10/29/16 15:00 11/01/16 09:20 Celexa - PO 20 mg DAILY SOM Administration Piperacillin Sod/Tazobactam 100 mls @ 200 mls/hr 10/29/16 15:15 11/01/16 09:20 Sod 4.5 gm/ Dextrose IVPB 200 mls/hr Q8H-IV SOM Administration Protocol Metronidazole 100 mls @ 100 mls/hr 10/29/16 18:00 11/01/16 09:20 Flagyl 500mg Premixed Ivpb - IVPB 100 mls/hr Q8H-IV SOM Administration Pantoprazole Sodium 40 mg/ 100 mls @ 200 mls/hr 10/30/16 10:00 11/01/16 11:11 Sodium Chloride IVPB 200 mls/hr DAILY SOM Administration Amino Acids 1,000 mls @ 84 mls/hr 11/01/16 10:45 11/01/16 12:41 Clinimix - IV 84 mls/hr Q12H SOM Administration Morphine Sulfate 2 mg 10/29/16 17:04 10/29/16 17:33 Morphine Injection - IVPUSH 2 mg Q4H PRN Administration PAIN Multivitamins/Minerals 10 ml 11/01/16 10:45 11/01/16 12:55 Infuvite Adult - IV 10 ml Q24H SOM Administration Promethazine HCl 12.5 mg 10/29/16 15:48 10/30/16 17:46 Phenergan Injection - IVPB 12.5 mg Q4H PRN Administration NAUSEA AND/OR VOMITING Home Medications Medication Instructions Recorded Citalopram Hydrobromide [Celexa -] 20 mg PO DAILY 10/28/16 Aspirin [Aspirin EC] 81 mg PO DAILY #30 tablet. 10/29/16 PE: abdomen: positive BS , no tenderness, Positive for JACKIE drainage with serosinguinous fluid around 3 cc now ASSESSMENT AND PLAN: Patient is a 76yo female with history of diverticulitis in August presents with 1 day of constipation followed by a bloody BM after taking laxatives, Dulculax tablets [address] was ordered which showed thickening of entire left colon, sigmoid, and rectum with enhancing collection posterior to the rectum and pneumatosis of upper decending colon with air in the retroperitoneum near the pneumatosis. Patient went to IR for drainage of collection. As per 's concern that the surgery may involve removal of a large portion of her colon and even the rectum. This may result in a permanent colostomy. Pt would best be managed at a tertiary care center with a colorectal surgeon. ON IV zosyn and Flagyl continue, started on PPN today with MVI at 83cc/hr. Waiting for a bed in [facility] with phone #[phone]. Pt does not want a colostomy and would want surgery to be done by a colorectal specialist if needed. Differential Dx includes inflammatory bowel disease, vs ischemic colitis on top of previous diverticulitis, vs c-diff colitis on top of previous diverticulitis. Hx of Depression: on Celexa, being given with a little sip of water. DVT Px: SCDs, not on heparin due to hematochezia. ambulating as well waiting for a tx center.
[2016-11-01] MEDS ORDERED: AMINO ACIDS 4.25%/D5W 1,000 ML IV SCH (10:45)
[2016-11-01] MEDS ORDERED: MULTIVIT INJ. ADULT COMBO WITH VIT K 1 COMBO 10 ML VIAL IV SCH (10:45)
[2016-11-01] MEDS: PANTOPRAZOLE SODIUM 40 MG in SODIUM CHLORIDE 100 ML IVPB SCH (11:11)
--- NOTE | 2016-11-01 11:53 | PN ---
Physical Exam: SUBJECTIVE: Patient seen and examined. No acute events overnight. Pt reports feeling well, just anxious to get transferred for her surgery. She reports some minimal nausea without emesis, no more abdominal pain, and states that she had 2 bowel movements yesterday without visible blood. OBJECTIVE: Vital Signs Period Temp Pulse Resp BP Sys/Saenz Pulse Ox Last 24 Hr 97.2 F-98 F 60-66 20-20 137-148/60-77 GENERAL: The patient is awake, alert, and fully oriented, in no acute distress. HEAD: Normal with no signs of trauma. EYES: PERRL, extraocular movements intact, sclera anicteric, conjunctiva clear. No ptosis. ENT: Ears normal, nares patent, oropharynx clear without exudates, moist mucous membranes. NECK: Trachea midline, full range of motion, supple. LUNGS: Breath sounds equal, clear to auscultation bilaterally, no wheezes, no crackles, no accessory muscle use. HEART: Regular rate and rhythm, S1, S2 without murmur, rub or gallop. ABDOMEN: Soft, nontender, nondistended, hyperactive bowel sounds, no guarding, no rebound, no hepatosplenomegaly, no masses. EXTREMITIES: 2+ pulses, warm, well-perfused, no edema. NEUROLOGICAL: Cranial nerves II through XII grossly intact. Normal speech, gait not observed. PSYCH: Normal mood, normal affect. SKIN: Warm, dry, normal turgor, no rashes or lesions noted Laboratory Results - last 24 hr 11/01/16 11/01/16 11/01/16 06:30 06:30 06:30 WBC 7.9 RBC 3.57 L Hgb 11.4 Hct 33.4 MCV 93.6 MCH 31.9 MCHC 34.0 RDW 13.2 Plt Count 448 H MPV 7.4 L D Neutrophils % 60.8 Lymphocytes % 24.2 Monocytes % 9.1 Eosinophils % 4.6 H Basophils % 1.3 Sodium 141 Potassium 3.8 Chloride 105 Carbon Dioxide 23 Anion Gap 13 BUN 9 Creatinine 0.7 Creat Clearance w eGFR > 60 Random Glucose 112 H D Lactic Acid 0.7 Calcium 8.4 L Total Bilirubin 0.8 AST 14 L ALT 12 Alkaline Phosphatase 52 Total Protein 5.8 L Albumin 2.6 L Active Medications Generic Name Dose Route Start Last Admin Trade Name Freq PRN Reason Stop Dose Admin Citalopram Hydrobromide 20 mg 10/29/16 15:00 11/01/16 09:20 Celexa - PO 20 mg DAILY SOM Administration Piperacillin Sod/Tazobactam 100 mls @ 200 mls/hr 10/29/16 15:15 11/01/16 09:20 Sod 4.5 gm/ Dextrose IVPB 200 mls/hr Q8H-IV SOM Administration Protocol Metronidazole 100 mls @ 100 mls/hr 10/29/16 18:00 11/01/16 09:20 Flagyl 500mg Premixed Ivpb - IVPB 100 mls/hr Q8H-IV SOM Administration Pantoprazole Sodium 40 mg/ 100 mls @ 200 mls/hr 10/30/16 10:00 11/01/16 11:11 Sodium Chloride IVPB 200 mls/hr DAILY SOM Administration Amino Acids 1,000 mls @ 84 mls/hr 11/01/16 10:45 Clinimix - IV Q12H SOM Morphine Sulfate 2 mg 10/29/16 17:04 10/29/16 17:33 Morphine Injection - IVPUSH 2 mg Q4H PRN Administration PAIN Multivitamins/Minerals 10 ml 11/01/16 10:45 Infuvite Adult - IV Q24H SOM Promethazine HCl 12.5 mg 10/29/16 15:48 10/30/16 17:46 Phenergan Injection - IVPB 12.5 mg Q4H PRN Administration NAUSEA AND/OR VOMITING ASSESSMENT/PLAN: 76F with pmh of diverticulitis presenting with LLQ abdominal pain and hematochezia, found to have bowel abscess and perforation, s/p I&D by IR on 10/29 , receiving abx, with normal abdominal exams, awaiting bed at [place] for colorectal surgery. #Bowel abscess- s/p IR guided abscess drainage on 10/29 -NPO, continue zosyn and flagyl, IV protonix 40 mg IV daily -lactic acid: 0.6 today -BCX: no growth to date -Abscess Cx: grew prevotella loescheii, awaiting sensitivities -Monitor abdominal exam, if patient worsens, pt may need to go for urgent surgery -ID, surgery, IR, and ICU on board -JACKIE draining less fluid than yesterday, fluid is less cloudy/bloody -wbc trending down, now 7.9, continue to trend #Bowel perforation/colitis -awaiting bed availability at [place], pt to receive colorectal surgery -serial abdominal exams -NPO, continue zosyn and flagyl, IV protonix 40 mg IV daily -pain control with morphine PRN -contacted [facility] this am, informed us that pt should be transferred today. #hematochezia -H/H wnl -Continue to monitor H/H #Diarrhea -C. diff antigen: negative #mild hypoglycemia -D5-1/2 NS d/c'd. started clinimax w/ multivitamin -BGM #Depression -continue celexa 20 mg po daily with small sips of water #FEN/GI -clinimax -WNL -NPO, receiving clinimax #PPx -DVT- SCDs (pt came in with hematochezia) -GI- Protonix 40 mg IV daily #Dispo -awaiting bed availability at [place], already accepted for transfer. -pt requesting colorectal surgery by Dr. Kyle Park at [facility] ). He was contacted and stated that he would be in touch with the accepting physician (Dr. Elba Raman). ---- Rashel Raymundo MD PGY1 Visit type - Emergency Visit Emergency Visit: Yes ED Registration Date: 10/29/16 Care time: The patient presented to the Emergency Department on the above date and was hospitalized for further evaluation of their emergent condition. - New Patient This patient is new to me today: No - Critical Care Critical Care patient: No
--- NOTE | 2016-11-01 15:04 | PN ---
Progress Note, Physician History of Present Illness: continues to remain stable awaiting for bed wbc normal no issues on tpn - Current Medication List Current Medications: Active Medications Citalopram Hydrobromide (Celexa -) 20 mg PO DAILY [facility] Last Admin: 11/01/16 09:20 Dose: 20 mg Piperacillin Sod/Tazobactam (Sod 4.5 gm/ Dextrose) 100 mls @ 200 mls/hr IVPB Q8H-IV SOM PRN Reason: Protocol Last Admin: 11/01/16 09:20 Dose: 200 mls/hr Metronidazole (Flagyl 500mg Premixed Ivpb -) 100 mls @ 100 mls/hr IVPB Q8H-IV SOM Last Admin: 11/01/16 09:20 Dose: 100 mls/hr Pantoprazole Sodium 40 mg/ (Sodium Chloride) 100 mls @ 200 mls/hr IVPB DAILY [facility] Last Admin: 11/01/16 11:11 Dose: 200 mls/hr Amino Acids (Clinimix -) 1,000 mls @ 84 mls/hr IV Q12H SOM Last Admin: 11/01/16 12:41 Dose: 84 mls/hr Morphine Sulfate (Morphine Injection -) 2 mg IVPUSH Q4H PRN PRN Reason: PAIN Last Admin: 10/29/16 17:33 Dose: 2 mg Multivitamins/Minerals (Infuvite Adult -) 10 ml IV Q24H [facility] Last Admin: 11/01/16 12:55 Dose: 10 ml Promethazine HCl (Phenergan Injection -) 12.5 mg IVPB Q4H PRN PRN Reason: NAUSEA AND/OR VOMITING Last Admin: 10/30/16 17:46 Dose: 12.5 mg - Objective Vital Signs: Vital Signs Temperature 97.9 F 11/01/16 09:00 Pulse Rate 63 11/01/16 09:00 Respiratory Rate 18 11/01/16 09:00 Blood Pressure 140/82 11/01/16 09:00 O2 Sat by Pulse Oximetry (%) 96 10/30/16 21:00 Constitutional: Yes: No Distress, Calm Cardiovascular: Yes: Regular Rate and Rhythm Respiratory: Yes: Regular, CTA Bilaterally Gastrointestinal: Yes: Soft, Other (draiange tube in place) Musculoskeletal: Yes: WNL Extremities: Yes: WNL Neurological: Yes: Alert, Oriented Labs: CBC, BMP 11/01/16 06:30 11/01/16 06:30 INR, PTT INR 1.37 (0.82-1.09) H 10/29/16 07:30 Assessment/Plan retroperitoneal abscess abd pain plan continue abx hydration rest as per primary team continue very close watch
[2016-11-01 15:35] VITALS: PULSE 61
[2016-11-01 17:03] VITALS: BP 152/81; TEMP 97.9
--- NOTE | 2016-11-01 17:23 | DS ---
Physical Exam: SUBJECTIVE: Patient seen and examined. No acute events overnight. Pt reports feeling well, just anxious to get transferred for her surgery. She reports some minimal nausea without emesis, no more abdominal pain, and states that she had 2 bowel movements yesterday without visible blood. OBJECTIVE: Vital Signs Period Temp Pulse Resp BP Sys/Saenz Pulse Ox Last 24 Hr 97.8 F-98.0 F 61-66 18-61 137-152/60-82 PHYSICAL EXAM GENERAL: The patient is awake, alert, and fully oriented, in no acute distress. HEAD: Normal with no signs of trauma. EYES: PERRL, extraocular movements intact, sclera anicteric, conjunctiva clear. ENT: Ears normal, nares patent, oropharynx clear without exudates, moist mucous membranes. NECK: Trachea midline, full range of motion, supple. LUNGS: Breath sounds equal, clear to auscultation bilaterally, no wheezes, no crackles, no accessory muscle use. HEART: Regular rate and rhythm, S1, S2 without murmur, rub or gallop. ABDOMEN: Soft, nontender, nondistended, hyperactive bowel sounds, no guarding, no rebound, no hepatosplenomegaly, no masses. EXTREMITIES: 2+ pulses, warm, well-perfused, no edema. NEUROLOGICAL: Cranial nerves II through XII grossly intact. Normal speech, gait not observed. PSYCH: Normal mood, normal affect. SKIN: Warm, dry, normal turgor, no rashes or lesions noted. LABS Laboratory Results - last 24 hr 11/01/16 11/01/16 11/01/16 06:30 06:30 06:30 WBC 7.9 RBC 3.57 L Hgb 11.4 Hct 33.4 MCV 93.6 MCH 31.9 MCHC 34.0 RDW 13.2 Plt Count 448 H MPV 7.4 L D Neutrophils % 60.8 Lymphocytes % 24.2 Monocytes % 9.1 Eosinophils % 4.6 H Basophils % 1.3 Sodium 141 Potassium 3.8 Chloride 105 Carbon Dioxide 23 Anion Gap 13 BUN 9 Creatinine 0.7 Creat Clearance w eGFR > 60 Random Glucose 112 H D Lactic Acid 0.7 Calcium 8.4 L Total Bilirubin 0.8 AST 14 L ALT 12 Alkaline Phosphatase 52 Total Protein 5.8 L Albumin 2.6 L HOSPITAL COURSE: Date of Admission:09/12/17 76F w/ hx of diverticulitis (08/2016), nephrolithiasis, depression, and arthritis who presented with LLQ abdominal pain, hematochezia, and NBNB emesis, found to have a leukocytosis, retroperitoneal abscess, thickened and perforated distal colon with pneumatosis and free air. Pt was made NPO, given NS, a dose of levaquin and flagyl in the ED, and then zosyn and flagyl in the ICU. Her physical exam was not impressive for an acute abdomen, so surgery was not performed emergently. On 10/29, she underwent an abscess drainage by IR. Pt was transferred to the floor and continued on zosyn and flagyl with improvement of her signs and symptoms. Currently, pt has normal vital signs, normal wbc count, normal electrolytes, and is stable for discharge to [facility] for evaluation for colorectal surgery. Date of Discharge: 11/01/16 Minutes to complete discharge: 36 Discharge Summary Reason For Visit: DIVERTICULITIS Current Active Problems Diverticulitis (Acute) Emesis (Acute) Hematochezia (Acute) Perforated bowel (Acute) Retroperitoneal abscess (Acute) Depression (Chronic) Condition: Stable - Instructions Diet, Activity, Other Instructions: You were found to have a retroperitoneal abscess and perforated colon. In the hospital, you were given antibiotics, and your abscess was drained by interventional radiology. Your perforated colon will be surgically treated by a colorectal surgeon at [facility]. Referrals: Adelaide Barber [Primary Care Provider] - Disposition: TRANSFER ACUTE CARE/OTHER HOSP - Home Medications Comprehensive Discharge Medication List: Ambulatory Orders Citalopram Hydrobromide [Celexa -] 20 mg PO DAILY 10/28/16 Aspirin [Aspirin EC] 81 mg PO DAILY #30 tablet. 10/29/16 This patient is new to me today: No Emergency Visit: Yes ED Registration Date: 10/29/16 Care time: The patient presented to the Emergency Department on the above date and was hospitalized for further evaluation of their emergent condition. Critical Care patient: No - Discharge Referral Referred to [facility] Med [facility] No
== END 2016-11-01 19:39 | disposition short-term general hospital (02) | DRG 356 ==
LOC: JER 14:17 → JERBED 10-29 00:20 → JICU 10-29 04:28 → J8W 10-29 15:04
PROVIDERS: ADMIT Internal Medicine; ATTEND Internal Medicine
PROC: 0W9H3ZX Drainage of Retroperitoneum, Percutaneous Approach, Diagnostic (ICD-10-PCS; principal; 2016-10-29)
DX: K57.20 Diverticulitis of large intestine with perforation and abscess without bleeding (principal); K68.19 Other retroperitoneal abscess; K92.2 Gastrointestinal hemorrhage, unspecified; K61.1 Rectal abscess; F32.9 Major depressive disorder, single episode, unspecified; N20.0 Calculus of kidney; A08.8 Other specified intestinal infections; E16.1 Other hypoglycemia; Z96.641 Presence of right artificial hip joint
CPT/HCPCS: 36415; 49406; 74177-TC; 76098-TC; 77012-TC; 80053; 81003; 81015; 83605; 83735; 85025; 85610; 87040; 87070; 87075; 87076; 87077; 87086; 87205; 87324; 87449; 87899; 93005; 93010; 99284-25; C1729; C1769

== ENCOUNTER 2023-07-02 10:47 | Day surgery (SDC) | payer OTHER, BC ==
[2023-06-27 14:21] VITALS: BMI 29.4
[2023-07-02 13:07] VITALS: BP 104/50; PULSE 60; RESP 17; TEMP 97
[2023-07-02 13:40] LABS: CREATININE 0.9 mg/dl (0.6-1.3)
== END 2023-07-02 13:08 | disposition home or self-care (01) ==
LOC: FASU-ENDO 10:47
PROVIDERS: ATTEND Internal Medicine Gastroenterology
PROC: 0DJD8ZZ Inspection of Lower Intestinal Tract, Via Natural or Artificial Opening Endoscopic (ICD-10-PCS; principal; 2023-07-02 11:54)
DX: Z12.11 Encounter for screening for malignant neoplasm of colon (principal); K64.1 Second degree hemorrhoids; K57.30 Diverticulosis of large intestine without perforation or abscess without bleeding; Z86.010 Personal history of colon polyps
CPT/HCPCS: 36415; 82565; 84520

== ENCOUNTER 2023-08-08 13:37 | Inpatient (IN) | payer OTHER, BC ==
[2023-08-08] MEDS ORDERED: ACETAMINOPHEN INJECTION 100 ML IVPB ONE (14:41)
[2023-08-08 14:42] LABS: HEMATOCRIT 35.5 % (32.4-45.2); HEMOGLOBIN 11.7 G/dL (10.7-15.3); MCH 31.2 pg (25.7-33.7); MEAN CELL VOLUME 94.6 fl (80-96); MEAN PLT VOLUME 6.9 fl (7.5-11.1); PLATELET COUNT 463.6 10^3/uL (134-434); RBC 3.75 10^6/uL (3.60-5.2); WHITE BLOOD COUNT 15.2 10^3/uL (4.0-10.8)
[2023-08-08] MEDS: ACETAMINOPHEN 1000 MG/100 ML BAG IVPB ONE (14:44)
[2023-08-08] MEDS: SODIUM CHLORIDE 0.9% 500 ML INFUS.BAG IV ONE (14:45)
[2023-08-08 14:51] LABS: ALBUMIN 3.5 g/dl (3.4-5.0); BILIRUBIN,TOTAL 0.5 mg/dl (0.2-1); CALCIUM 9.3 mg/dl (8.5-10.1); CREATININE 0.9 mg/dl (0.6-1.3); MAGNESIUM 2.1 mg/dL (1.8-2.4); POTASSIUM 4.7 mmol/L (3.5-5.1); TOT PROT 6.4 g/dl (6.4-8.2)
[2023-08-08 15:02] LABS: PLATELET ESTIMATE SLT INCREASE
[2023-08-08 16:12] LABS: N-TERMINAL BNP 1009.2 pg/ml (5-450)
[2023-08-08] MEDS ORDERED: PIPERACILLIN/TAZOBACTAM 4.5 GM VIAL IVPB ONE (16:27)
[2023-08-08] MEDS ORDERED: VANCOMYCIN 1,000 MG VIAL (RESTRICTED TO ID ONLY) ONE (16:27)
[2023-08-08] MEDS: PIPERACILLIN/TAZOB 4.5 GM 4.5 GM in DEXTROSE 5%-WATER 100 ML IVPB ONE (16:41)
[2023-08-08] MEDS: VANCOMYCIN 1,000 MG in DEXTROSE 5%-WATER - 250 ML IVPB ONE (16:41)
[2023-08-09] MEDS: LACTATED RINGERS SOLUTION 1,000 ML/1,000 ML INFUS.BAG IV SCH (01:00)
[2023-08-09] MEDS ORDERED: ACETAMINOPHEN INJECTION 100 ML IVPB ONE (01:04)
[2023-08-09] MEDS ORDERED: PIPERACILLIN/TAZOBACTAM 3.375 GM VIAL IVPB ONE (01:04)
[2023-08-09] MEDS: ACETAMINOPHEN 1000 MG/100 ML BAG IVPB ONE (01:10)
[2023-08-09] MEDS: PIPERACILLIN/TAZOB 4.5 GM 4.5 GM in DEXTROSE 5%-WATER 100 ML IVPB SCH ×2 (01:28→18:23)
[2023-08-09 08:06] LABS: HEMATOCRIT 32.5 % (32.4-45.2); HEMOGLOBIN 10.5 GM/dL (10.7-15.3); MCH 29.7 pg (25.7-33.7); MCHC 32.2 g/dl (32.0-36.0); MEAN CELL VOLUME 92.1 fl (80-96); MEAN PLT VOLUME 6.9 fl (7.5-11.1); PLATELET COUNT 517 10^3/uL (134-434); RBC 3.53 M/mm3 (3.60-5.2); RDW 12.6 % (11.6-15.6); WHITE BLOOD COUNT 17.4 K/mm3 (4.0-10.0)
[2023-08-09 08:24] LABS: POTASSIUM 4.5 mmol/L (3.5-5.1)
[2023-08-09 08:26] VITALS: BMI 27.8
[2023-08-09 08:33] LABS: BLOOD UREA NITROGEN 16.7 mg/dL (7-18); MAGNESIUM 2.2 mg/dL (1.8-2.4)
[2023-08-09 08:36] LABS: PHOSPHOROUS 4.2 mg/dL (2.5-4.9)
[2023-08-09] MEDS: CITALOPRAM HYDROBROMIDE 20 MG TABLET PO SCH (09:23)
[2023-08-09] MEDS: ENOXAPARIN NA (PORCINE) 40 MG/0.4 ML DISP.SYRIN SQ SCH (11:40)
[2023-08-09] MEDS: ACETAMINOPHEN 1000 MG/100 ML BAG IVPB PRN (12:09)
[2023-08-09] MEDS: DOCUSATE SODIUM 100 MG CAPSULE (FP) PO SCH (12:11)
[2023-08-09] MEDS: oxyCODONE HCL 5 MG TABLET PO ONE (13:04)
[2023-08-09] MEDS ORDERED: FENTANYL CITRATE/PF 50 MCG/ML VIAL ONE (16:43)
[2023-08-10] MEDS: CITALOPRAM HYDROBROMIDE 20 MG TABLET PO SCH (09:23)
[2023-08-10] MEDS: PIPERACILLIN/TAZOB 4.5 GM 4.5 GM in DEXTROSE 5%-WATER 100 ML IVPB SCH (09:24)
[2023-08-10 09:31] LABS: BASO % 0.4 % (0-2.0); EOS % 1.6 % (0-4.5); HEMATOCRIT 31.8 % (32.4-45.2); HEMOGLOBIN 10.5 GM/dL (10.7-15.3); LYMPH % 10.7 % (8-40); MCH 30.3 pg (25.7-33.7); MEAN CELL VOLUME 91.9 fl (80-96); MEAN PLT VOLUME 6.9 fl (7.5-11.1); MONO % 5.2 % (3.8-10.2); NEUT % 82.1 % (42.8-82.8); PLATELET COUNT 538 10^3/uL (134-434); RBC 3.46 M/mm3 (3.60-5.2); RDW 12.7 % (11.6-15.6); WHITE BLOOD COUNT 15.1 K/mm3 (4.0-10.0)
[2023-08-10 09:53] LABS: CALCIUM 8.8 mg/dL (8.5-10.1)
[2023-08-10 09:54] LABS: ALBUMIN 2.5 g/dl (3.4-5.0); MAGNESIUM 2.2 mg/dL (1.8-2.4)
[2023-08-10 09:56] LABS: PHOSPHOROUS 3.4 mg/dL (2.5-4.9)
[2023-08-10 09:57] LABS: CREATININE 0.9 mg/dL (0.55-1.3)
[2023-08-10 09:58] LABS: BILIRUBIN,TOTAL 0.6 mg/dL (0.2-1)
[2023-08-10] MEDS: MELATONIN 5 MG TABLETS PO PRN (22:45)
[2023-08-11 08:54] LABS: INR 1.3 (0.83-1.09); PROTHROMBIN TIME (PATIENT) 14.6 SEC (9.7-13.0)
[2023-08-11 08:57] LABS: ACTIVATED PTT 29.4 SECONDS (25.2-36.5)
[2023-08-11 09:05] LABS: BASO % 0.5 % (0-2.0); EOS % 4.1 % (0-4.5); HEMOGLOBIN 10.2 GM/dL (10.7-15.3); LYMPH % 14.8 % (8-40); MCH 30.9 pg (25.7-33.7); MCHC 34.1 g/dl (32.0-36.0); MEAN CELL VOLUME 90.5 fl (80-96); MEAN PLT VOLUME 6.8 fl (7.5-11.1); MONO % 7.5 % (3.8-10.2); NEUT % 73.1 % (42.8-82.8); PLATELET COUNT 539 10^3/uL (134-434); RBC 3.31 M/mm3 (3.60-5.2); RDW 12.9 % (11.6-15.6); WHITE BLOOD COUNT 9.7 K/mm3 (4.0-10.0)
[2023-08-11 09:09] LABS: POTASSIUM 4.5 mmol/L (3.5-5.1)
[2023-08-11 09:25] LABS: CALCIUM 8.9 mg/dL (8.5-10.1)
[2023-08-11 09:26] LABS: ALBUMIN 2.4 g/dl (3.4-5.0)
[2023-08-11 09:27] LABS: BLOOD UREA NITROGEN 9.9 mg/dL (7-18); CREATININE 0.8 mg/dL (0.55-1.3)
[2023-08-11 09:29] LABS: BILIRUBIN,TOTAL 0.5 mg/dL (0.2-1)
[2023-08-12 05:22] VITALS: RESP 18
[2023-08-12 09:25] LABS: BASO % 0.7 % (0-2.0); HEMATOCRIT 31.7 % (32.4-45.2); HEMOGLOBIN 10.7 GM/dL (10.7-15.3); MCH 31.1 pg (25.7-33.7); MCHC 33.9 g/dl (32.0-36.0); MEAN CELL VOLUME 91.7 fl (80-96); MEAN PLT VOLUME 6.8 fl (7.5-11.1); MONO % 6.2 % (3.8-10.2); NEUT % 72.1 % (42.8-82.8); PLATELET COUNT 583 10^3/uL (134-434); RBC 3.45 M/mm3 (3.60-5.2); RDW 12.7 % (11.6-15.6); WHITE BLOOD COUNT 6.9 K/mm3 (4.0-10.0)
[2023-08-12 09:41] LABS: POTASSIUM 4.1 mmol/L (3.5-5.1)
[2023-08-12 09:47] LABS: ALBUMIN 2.6 g/dl (3.4-5.0)
[2023-08-12 09:48] LABS: BLOOD UREA NITROGEN 11.8 mg/dL (7-18)
[2023-08-12 09:50] LABS: CREATININE 0.9 mg/dL (0.55-1.3)
[2023-08-12 09:52] LABS: BILIRUBIN,TOTAL 0.4 mg/dL (0.2-1); TOT PROT 6.4 g/dl (6.4-8.2)
[2023-08-12] MEDS ORDERED: ONDANSETRON 4 MG/2 ML VIAL IVPUSH PRN (19:04)
[2023-08-13 08:29] LABS: POTASSIUM 4.3 mmol/L (3.5-5.1)
[2023-08-13 08:35] LABS: BASO % 0.8 % (0-2.0); EOS % 3.3 % (0-4.5); HEMATOCRIT 31.3 % (32.4-45.2); HEMOGLOBIN 10.7 GM/dL (10.7-15.3); LYMPH % 23.6 % (8-40); MCH 31.4 pg (25.7-33.7); MCHC 34.2 g/dl (32.0-36.0); MEAN CELL VOLUME 91.7 fl (80-96); MEAN PLT VOLUME 6.8 fl (7.5-11.1); MONO % 8.7 % (3.8-10.2); NEUT % 63.6 % (42.8-82.8); PLATELET COUNT 590 10^3/uL (134-434); RBC 3.41 M/mm3 (3.60-5.2); RDW 12.7 % (11.6-15.6); WHITE BLOOD COUNT 6.9 K/mm3 (4.0-10.0)
[2023-08-13 08:43] LABS: BILIRUBIN,TOTAL 0.3 mg/dL (0.2-1); TOT PROT 6.3 g/dl (6.4-8.2)
[2023-08-13 08:46] LABS: ALBUMIN 2.5 g/dl (3.4-5.0)
[2023-08-13 08:48] VITALS: BP 138/62; PULSE 68; TEMP 98.9
[2023-08-13 08:48] LABS: CALCIUM 9.2 mg/dL (8.5-10.1)
[2023-08-13 08:49] LABS: CREATININE 0.8 mg/dL (0.55-1.3)
== END 2023-08-13 14:00 | disposition home or self-care (01) | DRG 392 ==
LOC: FER 13:37 → J6S 08-09 06:00
PROVIDERS: ADMIT Internal Medicine; ATTEND Internal Medicine
PROC: 0W9J30Z Drainage of Pelvic Cavity with Drainage Device, Percutaneous Approach (ICD-10-PCS; principal; 2023-08-11)
DX: K57.20 Diverticulitis of large intestine with perforation and abscess without bleeding (principal); D75.839 Thrombocytosis, unspecified; K59.00 Constipation, unspecified; F32.A Depression, unspecified; B96.20 Unspecified Escherichia coli [E. coli] as the cause of diseases classified elsewhere
CPT/HCPCS: 0241U-QW; 36415; 49407; 71045-TC-FY; 74177-TC; 80048; 80053; 81003; 81015; 82962; 83605; 83735; 83880; 84100; 84443; 84484; 85025; 85027; 85610; 85730; 86140; 86850; 86900; 86901; 87040; 87070; 87075; 87076; 87077; 87086; 87102; 87116; 87186; 87205; 87206; 87210; 93005; 99285-25; J0131; Q9967

== ENCOUNTER 2023-10-29 09:51 | Inpatient (IN) | payer OTHER, BC ==
[2023-10-29 09:58] VITALS: BMI 27.6
[2023-10-29] MEDS ORDERED: ONDANSETRON 4 MG/2 ML VIAL ONE (10:23)
[2023-10-29] MEDS: SODIUM CHLORIDE 1,000 ML IV STA (10:51)
[2023-10-29] MEDS: ONDANSETRON 4 MG/2 ML VIAL IVPUSH ONE (10:51)
[2023-10-29 10:59] LABS: BASO % 0.1 % (0-2.0); HEMOGLOBIN 11.9 GM/dL (10.7-15.3); LYMPH % 5.1 % (8-40); MCH 31.3 pg (25.7-33.7); MEAN CELL VOLUME 92.1 fl (80-96); MEAN PLT VOLUME 7.9 fl (7.5-11.1); MONO % 9.2 % (3.8-10.2); NEUT % 85.6 % (42.8-82.8); PLATELET COUNT 363 10^3/uL (134-434); WHITE BLOOD COUNT 18.5 K/mm3 (4.0-10.0)
[2023-10-29 11:01] LABS: EPI CELLS 25 /uL (0-25.1); HYALINE CASTS 0 /uL (0-3.1); URINE APPEARANCE CLEAR; URINE BACTERIA 191 /uL (0-1359); URINE BILIRUBIN NEGATIVE (NEGATIVE); URINE COLOR YELLOW; URINE GLUCOSE (UA) NEGATIVE (NEGATIVE); URINE KETONE NEGATIVE (NEGATIVE); URINE LEUK ESTERASE 1+ (NEGATIVE); URINE NITRITE NEGATIVE (NEGATIVE); URINE PROTEIN TRACE (NEGATIVE); URINE RBC 221 /uL (0-23.9); URINE WBC 30 /uL (0-25.8)
[2023-10-29 11:05] LABS: INR 1.26 (0.83-1.09); PROTHROMBIN TIME (PATIENT) 14.1 SEC (9.7-13.0)
[2023-10-29 11:22] LABS: POTASSIUM 4.7 mmol/L (3.5-5.1)
[2023-10-29 11:25] LABS: BLOOD UREA NITROGEN 19.7 mg/dL (7-18); CALCIUM 9.2 mg/dL (8.5-10.1)
[2023-10-29 11:26] LABS: ALBUMIN 3.1 g/dl (3.4-5.0); MAGNESIUM 2.2 mg/dL (1.8-2.4)
[2023-10-29 11:29] LABS: CREATININE 0.9 mg/dL (0.55-1.3)
[2023-10-29 11:31] LABS: BILIRUBIN,TOTAL 0.8 mg/dL (0.2-1)
[2023-10-29] MEDS ORDERED: PIPERACILLIN/TAZOB 3.375 GM 3.375 GM/50 ML BAG IVPB ONE ×2 (13:42→13:43)
[2023-10-29] MEDS: PIPERACILLIN/TAZOB 3.375 GM 3.375 GM in DEXTROSE 5%-WATER - 50 ML IVPB ONE (13:55)
[2023-10-29] MEDS: LACTATED RINGERS SOLUTION 1,000 ML/1,000 ML INFUS.BAG IV SCH (16:47)
[2023-10-29] MEDS: PIPERACILLIN/TAZOB 3.375 GM 3.375 GM in DEXTROSE 5%-WATER - 50 ML IVPB SCH (18:11)
[2023-10-30] MEDS: ONDANSETRON 4 MG/2 ML VIAL IVPUSH PRN (08:33)
[2023-10-30 08:45] LABS: HEMATOCRIT 32.8 % (32.4-45.2); HEMOGLOBIN 10.9 GM/dL (10.7-15.3); MCH 30.7 pg (25.7-33.7); MCHC 33.2 g/dl (32.0-36.0); MEAN CELL VOLUME 92.5 fl (80-96); MEAN PLT VOLUME 7.5 fl (7.5-11.1); PLATELET COUNT 339 10^3/uL (134-434); RBC 3.55 M/mm3 (3.60-5.2); RDW 13.8 % (11.6-15.6); WHITE BLOOD COUNT 15.4 K/mm3 (4.0-10.0)
[2023-10-30 08:57] LABS: POTASSIUM 4.1 mmol/L (3.5-5.1)
[2023-10-30 09:02] LABS: ALBUMIN 2.6 g/dl (3.4-5.0); CALCIUM 8.7 mg/dL (8.5-10.1)
[2023-10-30] MEDS: ENOXAPARIN NA (PORCINE) 40 MG/0.4 ML DISP.SYRIN SQ SCH (09:02)
[2023-10-30] MEDS: CITALOPRAM HYDROBROMIDE 20 MG TABLET PO SCH (09:02)
[2023-10-30 09:03] LABS: BLOOD UREA NITROGEN 14.2 mg/dL (7-18); MAGNESIUM 2.1 mg/dL (1.8-2.4)
[2023-10-30 09:07] LABS: BILIRUBIN,TOTAL 0.9 mg/dL (0.2-1); CREATININE 0.8 mg/dL (0.55-1.3)
[2023-10-30] MEDS: PIPERACILLIN/TAZOB 4.5 GM 4.5 GM in DEXTROSE 5%-WATER 100 ML IVPB SCH (14:27)
[2023-10-30] MEDS: hydrOXYzine PAMOATE 25 MG CAPSULE (FP) PO PRN (15:09)
[2023-10-30] MEDS: ACETAMINOPHEN 325 MG TABLET (FP) PO PRN (22:14)
[2023-10-31] MEDS: PIPERACILLIN/TAZOB 3.375 GM 3.375 GM in DEXTROSE 5%-WATER - 50 ML IVPB SCH (07:42)
[2023-10-31 08:53] LABS: BASO % 0.5 % (0-2.0); EOS % 0.6 % (0-4.5); HEMATOCRIT 33.8 % (32.4-45.2); HEMOGLOBIN 11.1 GM/dL (10.7-15.3); MCH 30.5 pg (25.7-33.7); MCHC 32.9 g/dl (32.0-36.0); MEAN CELL VOLUME 92.6 fl (80-96); MEAN PLT VOLUME 7.1 fl (7.5-11.1); MONO % 13.4 % (3.8-10.2); NEUT % 75.5 % (42.8-82.8); PLATELET COUNT 371 10^3/uL (134-434); RBC 3.65 M/mm3 (3.60-5.2); WHITE BLOOD COUNT 12.9 K/mm3 (4.0-10.0)
[2023-10-31 09:16] LABS: POTASSIUM 4.4 mmol/L (3.5-5.1)
[2023-10-31 09:40] LABS: CALCIUM 9.2 mg/dL (8.5-10.1)
[2023-10-31 09:41] LABS: ALBUMIN 2.7 g/dl (3.4-5.0)
[2023-10-31 09:45] LABS: BILIRUBIN,TOTAL 1.2 mg/dL (0.2-1); TOT PROT 6.4 g/dl (6.4-8.2)
[2023-11-01 09:33] LABS: BASO % 0.6 % (0-2.0); EOS % 0.8 % (0-4.5); HEMOGLOBIN 11.2 GM/dL (10.7-15.3); LYMPH % 10.4 % (8-40); MCH 31.2 pg (25.7-33.7); MCHC 33.9 g/dl (32.0-36.0); MEAN CELL VOLUME 92.2 fl (80-96); MEAN PLT VOLUME 7.2 fl (7.5-11.1); MONO % 13.2 % (3.8-10.2); PLATELET COUNT 386 10^3/uL (134-434); RBC 3.58 M/mm3 (3.60-5.2); RDW 13.4 % (11.6-15.6); WHITE BLOOD COUNT 10.2 K/mm3 (4.0-10.0)
[2023-11-01 09:43] LABS: POTASSIUM 3.8 mmol/L (3.5-5.1)
[2023-11-01 09:48] LABS: CALCIUM 9.1 mg/dL (8.5-10.1)
[2023-11-01 09:49] LABS: ALBUMIN 2.6 g/dl (3.4-5.0); BLOOD UREA NITROGEN 11.9 mg/dL (7-18)
[2023-11-01 09:54] LABS: TOT PROT 6.5 g/dl (6.4-8.2)
[2023-11-02 10:59] LABS: BASO % 0.6 % (0-2.0); EOS % 1.2 % (0-4.5); HEMATOCRIT 33.7 % (32.4-45.2); HEMOGLOBIN 11.5 GM/dL (10.7-15.3); LYMPH % 13.7 % (8-40); MCHC 34.1 g/dl (32.0-36.0); MEAN PLT VOLUME 6.9 fl (7.5-11.1); MONO % 11.6 % (3.8-10.2); NEUT % 72.9 % (42.8-82.8); PLATELET COUNT 404 10^3/uL (134-434); RDW 13.7 % (11.6-15.6); WHITE BLOOD COUNT 8.8 K/mm3 (4.0-10.0)
[2023-11-03 10:09] LABS: BASO % 0.5 % (0-2.0); EOS % 1.7 % (0-4.5); HEMATOCRIT 34.2 % (32.4-45.2); HEMOGLOBIN 11.7 GM/dL (10.7-15.3); LYMPH % 13.4 % (8-40); MCHC 34.2 g/dl (32.0-36.0); MEAN CELL VOLUME 90.7 fl (80-96); MEAN PLT VOLUME 6.9 fl (7.5-11.1); MONO % 9.5 % (3.8-10.2); NEUT % 74.9 % (42.8-82.8); PLATELET COUNT 461 10^3/uL (134-434); RBC 3.77 M/mm3 (3.60-5.2); RDW 13.7 % (11.6-15.6); WHITE BLOOD COUNT 9.1 K/mm3 (4.0-10.0)
[2023-11-03 10:26] LABS: POTASSIUM 4.2 mmol/L (3.5-5.1)
[2023-11-03 10:28] LABS: CALCIUM 9.4 mg/dL (8.5-10.1)
[2023-11-03 10:29] LABS: ALBUMIN 2.7 g/dl (3.4-5.0); BLOOD UREA NITROGEN 9.8 mg/dL (7-18); MAGNESIUM 2.4 mg/dL (1.8-2.4)
[2023-11-03 10:32] LABS: CREATININE 0.9 mg/dL (0.55-1.3)
[2023-11-03 10:33] LABS: BILIRUBIN,TOTAL 0.7 mg/dL (0.2-1); PHOSPHOROUS 3.4 mg/dL (2.5-4.9); TOT PROT 6.7 g/dl (6.4-8.2)
[2023-11-04] MEDS: CEFTRIAXONE 2 GM in DEXTROSE 5%-WATER 100 ML IVPB SCH (16:50)
[2023-11-05 10:17] LABS: HEMATOCRIT 35.8 % (32.4-45.2); HEMOGLOBIN 11.6 GM/dL (10.7-15.3); MCH 30.2 pg (25.7-33.7); MCHC 32.5 g/dl (32.0-36.0); MEAN CELL VOLUME 92.9 fl (80-96); PLATELET COUNT 522 10^3/uL (134-434); RBC 3.86 M/mm3 (3.60-5.2); RDW 13.8 % (11.6-15.6); WHITE BLOOD COUNT 12.5 K/mm3 (4.0-10.0)
[2023-11-05 10:37] LABS: POTASSIUM 4.7 mmol/L (3.5-5.1)
[2023-11-05 10:51] LABS: BLOOD UREA NITROGEN 12.7 mg/dL (7-18); CALCIUM 9.5 mg/dL (8.5-10.1)
[2023-11-05 10:52] LABS: ALBUMIN 2.8 g/dl (3.4-5.0); MAGNESIUM 2.5 mg/dL (1.8-2.4)
[2023-11-05 10:55] LABS: CREATININE 0.8 mg/dL (0.55-1.3); PHOSPHOROUS 2.7 mg/dL (2.5-4.9)
[2023-11-05 10:56] LABS: BILIRUBIN,TOTAL 0.4 mg/dL (0.2-1); TOT PROT 6.8 g/dl (6.4-8.2)
[2023-11-06 09:59] LABS: BASO % 0.6 % (0-2.0); EOS % 0.2 % (0-4.5); HEMATOCRIT 36.1 % (32.4-45.2); HEMOGLOBIN 11.9 GM/dL (10.7-15.3); LYMPH % 6.2 % (8-40); MCH 30.1 pg (25.7-33.7); MCHC 33.1 g/dl (32.0-36.0); MEAN CELL VOLUME 90.9 fl (80-96); MEAN PLT VOLUME 6.8 fl (7.5-11.1); MONO % 4.8 % (3.8-10.2); NEUT % 88.2 % (42.8-82.8); PLATELET COUNT 526 10^3/uL (134-434); RBC 3.97 M/mm3 (3.60-5.2); RDW 13.7 % (11.6-15.6); WHITE BLOOD COUNT 14.6 K/mm3 (4.0-10.0)
[2023-11-06] MEDS ORDERED: MIDAZOLAM HCL 2 MG/2 ML SINGLE DOSE VIAL ONE ×2 (15:44→16:25)
[2023-11-06] MEDS ORDERED: FENTANYL CITRATE/PF 50 MCG/ML VIAL ONE ×3 (15:44→16:25)
[2023-11-06] MEDS: SODIUM CHLORIDE 500 ML IV ONE (16:15)
[2023-11-06] MEDS: FENTANYL CITRATE/PF 50 MCG/ML VIAL IVPUSH SCH (16:23)
[2023-11-06] MEDS: MIDAZOLAM HCL 2 MG/2 ML SINGLE DOSE VIAL IVPUSH SCH (16:23)
[2023-11-06] MEDS ORDERED: oxyCODONE HCL 5 MG TABLET PO PRN (18:19)
[2023-11-07 05:09] VITALS: RESP 18
[2023-11-07] MEDS: PANTOPRAZOLE 40 MG TABLET PO SCH (18:00)
[2023-11-07] MEDS: MAG HYDROX/AL HYDROX/SIMETH 30 ML UNIT-DOSE CUP PO ONE (21:11)
[2023-11-07] MEDS: FAMOTIDINE 20 MG/50 ML IVPB 20 MG/50 ML MG IVPB ONE (21:13)
[2023-11-08 10:48] LABS: BASO % 0.7 % (0-2.0); EOS % 1.3 % (0-4.5); HEMATOCRIT 34.3 % (32.4-45.2); HEMOGLOBIN 11.1 GM/dL (10.7-15.3); LYMPH % 15.3 % (8-40); MCH 30.1 pg (25.7-33.7); MCHC 32.4 g/dl (32.0-36.0); MEAN CELL VOLUME 92.8 fl (80-96); MEAN PLT VOLUME 6.9 fl (7.5-11.1); MONO % 7.8 % (3.8-10.2); NEUT % 74.9 % (42.8-82.8); PLATELET COUNT 507 10^3/uL (134-434); RDW 13.5 % (11.6-15.6); WHITE BLOOD COUNT 6.5 K/mm3 (4.0-10.0)
[2023-11-08 11:09] LABS: POTASSIUM 4.2 mmol/L (3.5-5.1)
[2023-11-08 11:17] LABS: ALBUMIN 2.5 g/dl (3.4-5.0)
[2023-11-08 11:18] LABS: BLOOD UREA NITROGEN 13.1 mg/dL (7-18)
[2023-11-08 11:20] LABS: BILIRUBIN,TOTAL 0.2 mg/dL (0.2-1); TOT PROT 6.2 g/dl (6.4-8.2)
[2023-11-08 11:21] LABS: CREATININE 0.9 mg/dL (0.55-1.3)
[2023-11-09 10:14] LABS: BASO % 1.3 % (0-2.0); EOS % 3.7 % (0-4.5); HEMATOCRIT 34.3 % (32.4-45.2); HEMOGLOBIN 11.5 GM/dL (10.7-15.3); LYMPH % 15.8 % (8-40); MCH 30.4 pg (25.7-33.7); MCHC 33.5 g/dl (32.0-36.0); MEAN CELL VOLUME 90.7 fl (80-96); MEAN PLT VOLUME 7.1 fl (7.5-11.1); MONO % 6.9 % (3.8-10.2); NEUT % 72.3 % (42.8-82.8); PLATELET COUNT 515 10^3/uL (134-434); RBC 3.78 M/mm3 (3.60-5.2); RDW 13.7 % (11.6-15.6); WHITE BLOOD COUNT 5.4 K/mm3 (4.0-10.0)
[2023-11-09 10:29] LABS: POTASSIUM 4.3 mmol/L (3.5-5.1)
[2023-11-09 10:31] LABS: ALBUMIN 2.7 g/dl (3.4-5.0); BLOOD UREA NITROGEN 10.8 mg/dL (7-18); CALCIUM 9.1 mg/dL (8.5-10.1)
[2023-11-09 10:35] LABS: CREATININE 0.8 mg/dL (0.55-1.3)
[2023-11-09 10:36] LABS: BILIRUBIN,TOTAL 0.2 mg/dL (0.2-1); TOT PROT 6.3 g/dl (6.4-8.2)
[2023-11-09] MEDS: clonazePAM 0.5 MG TABLET PO PRN (13:46)
[2023-11-10 05:45] VITALS: BP 128/60; PULSE 60; TEMP 98
== END 2023-11-10 14:42 | disposition home or self-care (01) | DRG 392 ==
LOC: JER 09:51 → JERBED 13:34 → J6S 14:24
PROVIDERS: ADMIT Internal Medicine; ATTEND Internal Medicine
PROC: 0W9G30Z Drainage of Peritoneal Cavity with Drainage Device, Percutaneous Approach (ICD-10-PCS; principal; 2023-11-06)
DX: K57.20 Diverticulitis of large intestine with perforation and abscess without bleeding (principal); F41.9 Anxiety disorder, unspecified; F32.A Depression, unspecified; R19.7 Diarrhea, unspecified; D75.839 Thrombocytosis, unspecified
CPT/HCPCS: 36415; 49406; 74177-TC; 80053; 81003; 83735; 84100; 85025; 85027; 85610; 86140; 86850; 86900; 86901; 87040; 87070; 87075; 87076; 87077; 87086; 87102; 87116; 87186; 87205; 87206; 87210; 87635; 93005; 93010; 99285-25; Q9967